=== PATIENT | female | born 1965 | race Caucasian/White ===

== ENCOUNTER 2023-11-15 16:41 | Emergency (ER) | payer MEDICARE, OTHER, SELFPAY ==
[2023-11-15 16:50] VITALS: BP 117/83; PULSE 71; RESP 18; TEMP 36.3; O2SAT 97
--- NOTE | 2023-11-15 17:06 | CT_ITS ---
Patient: HAJA MIMS Facility:?[facility] Patient ID:?[id number] Site Patient ID:?[id number]. Site :?[id number] Study:?CT-Abdomen/Pelvis 74CC ISOVUE 370-11/15/2023 6:05:58 PM Ordering Physician:?DR. ZAVALA Final Report: INDICATION: Ostomy with decreased output and nausea. TECHNIQUE: CT abdomen and pelvis acquired with 74 cc Omnipaque 350 IV contrast. COMPARISON: January 09, 2018. FINDINGS: Lower chest: Bibasilar atelectasis. Liver: Stable small hemangioma in the liver dome. Gallbladder and bile ducts: Unremarkable. No stones or inflammation. No biliary dilatation. Pancreas: Unremarkable. No mass or inflammation. Spleen: Unremarkable. Normal in size. No masses. Adrenal glands: Unremarkable. No nodules. Kidneys: Unremarkable. No suspicious masses, stones, or hydronephrosis. GI tract: Left ventral colostomy is present. Large parastomal hernia contains stool filled distended colon. There is also a large right ventral hernia containing stool filled distended colon. Small bowel is decompressed. Vasculature: Abdominal aorta is normal in caliber. Mesenteric arteries are patent. Lymph nodes: No lymphadenopathy. Peritoneum/Abdominal Wall: Small amount of free air in the left upper quadrant is presumably postoperative in nature. No fluid collections. Pelvis: Unremarkable. Bones: Unremarkable for age. IMPRESSION: 1. Left ventral colostomy is present. There is a constipation pattern in the colon. 2. Large left parastomal hernia and separate right ventral hernia contain segments of non incarcerated colon. 3. Left upper quadrant free air is presumably postoperative in nature. Please note that all CT scans at this facility use dose modulation, iterative reconstruction, and/or weight-based dosing when appropriate to reduce radiation dose to as low as reasonably achievable. Dictated by Jt Lee MD @ 11/15/2023 6:27:34 PM ----- ADDENDUM ----- FINDINGS: Results were discussed with Dr. Byrnes. The patient has not had recent surgery. Therefore, the free air is abnormal. Upon additional review the images, there is likely pneumatosis in the distal colon near the ostomy site. This is highly suspicious for acute ischemia/necrosis. Dictated by Jt Lee MD @ Nov 15 2023 6:54PM Signed by:?Jt Lee MD @11/15/2023 6:27:34 PM (Electronic Signature)
--- NOTE | 2023-11-15 17:14 | ED.GENADULT ---
HPI - General Adult General Date Seen: 11/15/23 Chief complaint: Abdominal Pain Stated complaint: abdominal pain, nausea, constipated Time Seen by Provider: 11/15/23 16:55 Source: patient, RN notes reviewed and old records reviewed Mode of arrival: ambulatory Limitations: no limitations History of Present Illness HPI narrative: Patient is a 58-year-old who is here with a few different concerns. One she says that she feels like her ostomy is not functioning quite right. She presents on Friday, says Friday morning she woke up with a lot of painful gas which is not unusual for her but she took simethicone it did not improve. Since then, she has had problems with her ostomy bulging out a bit, some leaking around the bag, and decreased output. She has also noted a little bit of rectal bleeding which she says is not unusual for her. Her ostomy was done 6 years ago she says for perforated bowel. She says that she is able to get it taken down but she has to quit smoking which she has not been able to do yet. She notes nausea and dry heaves, she says she has also had increased fatigue, increased headaches over the past week. No fevers. Related Data Home Medications Medication Instructions Recorded Confirmed alendronate 70 mg tablet 70 mg PO 11/15/23 atorvastatin 40 mg tablet 40 mg PO DAILY 11/15/23 11/15/23 bupropion HCl 300 mg 24 hr tablet, 300 mg PO DAILY 11/15/23 11/15/23 extended release buspirone 10 mg tablet 10 mg PO 3XD 11/15/23 11/15/23 carvedilol 12.5 mg tablet 12.5 mg PO BID 11/15/23 11/15/23 cetirizine 10 mg tablet 10 mg PO DAILY 11/15/23 11/15/23 cholecalciferol (vitamin D3) 25 25 mcg PO DAILY 11/15/23 11/15/23 mcg (1,000 unit) capsule dextroamphetamine-amphetamine 30 1 tab PO BID 11/15/23 11/15/23 mg tablet famotidine 20 mg tablet 20 mg PO BID 11/15/23 11/15/23 furosemide 20 mg tablet 20 mg PO DAILY 11/15/23 11/15/23 gabapentin 600 mg tablet PO 11/15/23 hydrocodone 10 mg-acetaminophen 1 tab PO 3XD PRN 11/15/23 11/15/23 325 mg tablet losartan 100 mg tablet 100 mg PO DAILY 11/15/23 11/15/23 lurasidone 20 mg tablet 20 mg PO DAILY 11/15/23 11/15/23 propranolol 60 mg capsule,24 60 mg PO DAILY 11/15/23 11/15/23 hr,extended release spironolactone 25 mg tablet 25 mg PO DAILY 11/15/23 11/15/23 trazodone 150 mg tablet 150 mg PO QPM 11/15/23 11/15/23 vortioxetine 20 mg tablet 20 mg PO DAILY 11/15/23 11/15/23 (Trintellix) Allergies Allergy/AdvReac Type Severity Reaction Status Date / Time morphine Allergy Verified 11/15/23 18:06 hctz AdvReac Uncoded 11/15/23 18:06 Review of Systems Status of ROS: Reports: 10 or more systems reviewed and unremarkable except as noted in History and below Exam Narrative: Exam Narrative: Vital signs as noted above. In general, an alert, nontoxic woman. Breathing easily. Looks comfortable. Head: Normocephalic, atraumatic. Eyes: Pupils are equal reactive. Extraocular movements are full. Conjunctivae are normal. ENT: Mucous membranes are moist. Delete Neck: Supple without lymphadenopathy. Heart: Regular rate and rhythm. No murmur or rub. Lungs: Clear bilaterally. No increased work of breathing, crackles or wheezes. Abdomen: Ostomy in the left abdomen. The ostomy itself looks normal right now. She does have erythema surrounding laterally and inferiorly, and the either abdominal wall or bowel contents are extremely firm to palpation inferior to the ostomy. There is erythema overlying this area, but she does not note significant tenderness. Area feels slightly warm. Extremities: Well perfused. No edema. No calf tenderness. Pulses intact. Neurologic: Patient is alert and oriented to person and place. She has little bit of a stutter. Face is symmetric. Moves all extremities equally. Affect: Anxious. Skin: Warm and dry. Well perfused. Const: Vital Signs, click to edit/add: Vital Signs - 24 hr 11/15/23 16:50 Temperature 97.3 F L Pulse Rate [Right Pulse Oximeter] 71 Respiratory Rate 18 Blood Pressure [Ri ght Upper Arm] 117/83 Pulse Oximetry 97 Oxygen Delivery Me thod Room Air Documenting provider has reviewed patient's vital signs: yes Course Course ED Course: Patient presents with some general and GI symptoms over the past few days. She has not been vomiting, continues to eat and drink and sounds like she is passing gas, but she most certainly has an abnormal abdominal exam. I would worry more about incarcerated hernia but she does not seem to have tenderness. Abdominal exam is really fairly benign I do think CT scan is warranted however. Will place an IV, give some Zofran, check labs, CT scan with contrast of the abdomen and pelvis ordered. Patient had labs notable for a normal white blood cell count of 10.6, left shift with 78% neutrophils. Hemoglobin is 12.2, normal platelets. Her CRP was markedly elevated at 38, lactate was normal. LFTs, metabolic panel fairly unremarkable, sodium 134, potassium 3.5. Creatinine is normal. Lipase 36. She went on to have CT scan of the abdomen. Initial radiology read was of constipation pattern, a large left peristomal hernia, separate right ventral hernia, non incarcerated colon and free air in the left upper quadrant which they called likely postoperative in nature. However, patient has not had any surgeries in the recent past. I discussed all this with Dr. Byrnes, who reviewed the images and reviewed the case with Radiology as well. They then provided an addendum as follows:FINDINGS: Lower chest: Bibasilar atelectasis. Liver: Stable small hemangioma in the liver dome. Gallbladder and bile ducts: Unremarkable. No stones or inflammation. No biliary dilatation. Pancreas: Unremarkable. No mass or inflammation. Spleen: Unremarkable. Normal in size. No masses. Adrenal glands: Unremarkable. No nodules. Kidneys: Unremarkable. No suspicious masses, stones, or hydronephrosis. GI tract: Left ventral colostomy is present. Large parastomal hernia contains stool filled distended colon. There is also a large right ventral hernia containing stool filled distended colon. Small bowel is decompressed. Vasculature: Abdominal aorta is normal in caliber. Mesenteric arteries are patent. Lymph nodes: No lymphadenopathy. Peritoneum/Abdominal Wall: Small amount of free air in the left upper quadrant is presumably postoperative in nature. No fluid collections. Pelvis: Unremarkable. Bones: Unremarkable for age. IMPRESSION: 1. Left ventral colostomy is present. There is a constipation pattern in the colon. 2. Large left parastomal hernia and separate right ventral hernia contain segments of non incarcerated colon. 3. Left upper quadrant free air is presumably postoperative in nature. Please note that all CT scans at this facility use dose modulation, iterative reconstruction, and/or weight-based dosing when appropriate to reduce radiation dose to as low as reasonably achievable. Dictated by Jt Lee MD @ 11/15/2023 6:27:34 PM ----- ADDENDUM ----- FINDINGS: Results were discussed with Dr. Byrnes. The patient has not had recent surgery. Therefore, the free air is abnormal. Upon additional review the images, there is likely pneumatosis in the distal colon near the ostomy site. This is highly suspicious for acute ischemia/necrosis. I have discussed all this with the patient. She remains hemodynamically stable and without significant complaints. She does not have a surgical abdomen at this time. Dr. Byrnes did recommend transfer to [facility] eyes she feels this will be a significantly complex case and the patient may need ICU care postoperatively. There is 2-4 hour wait for bed assignment at [facility]. If patient declines clinically in that time frame, we will discuss with Dr. Byrnes. Patient received Zosyn 3.375 g IV. Vital Signs Vital signs: Initial Vital Signs Temperature 97.3 F L 11/15/23 16:50 Temperature Source Temporal Artery Scan 11/15/23 16:50 Pulse Rate 71 11/15/23 16:50 Respiratory Rate 18 11/15/23 16:50 Blood Pressure 117/83 11/15/23 16:50 Blood Pressure Mean 94 11/15/23 16:50 Blood Pressure Position Sitting 11/15/23 16:50 Pulse Oximetry 97 11/15/23 16:50 Oxygen Delivery Method Room Air 11/15/23 16:50 Vital Signs Temperature 97.3 F L 11/15/23 16:50 Pulse Rate 71 11/15/23 16:50 Respiratory Rate 18 11/15/23 16:50 Blood Pressure 117/83 11/15/23 16:50 Pulse Oximetry 97 11/15/23 16:50 Oxygen Delivery Method Room Air 11/15/23 16:50 Temperature 97.3 F L 11/15/23 16:50 Pulse Rate 71 11/15/23 16:50 Respiratory Rate 18 11/15/23 16:50 Blood Pressure 117/83 11/15/23 16:50 Pulse Oximetry 97 11/15/23 16:50 Oxygen Delivery Method Room Air 11/15/23 16:50 Medications Administered Medications: Discontinued Medications Generic Name Dose Route Start Last Admin Trade Name Erica PRN Reason Stop Dose Admin Sodium Chloride 1,000 mls @ 1,000 mls/hr 11/15/23 17:15 11/15/23 18:25 0.9 % Sodium Chloride 1000 Ml IV 11/15/23 18:14 Infused .Q1H JAYA Infusion Lactated Ringer's 1,000 mls @ 75 mls/hr 11/15/23 19:55 11/15/23 20:05 Lactated Ringers 1000 Ml IV 75 mls/hr .[id number] JAYA Administration Ketorolac Tromethamine 15 mg 11/15/23 17:06 11/15/23 17:26 Ketorolac 15 Mg/Ml Inj IVP 11/15/23 17:07 15 mg ONCE ONE Administration Medical Decision Making Lab Data Labs: Lab Results 11/15/23 Range/Units 17:18 WBC 10.06 (4.50-11.00) K/uL RBC 3.76 L (4.00-5.20) m/uL Hgb 12.2 (12.0-16.0) gm/dL Hct 36.5 (33.0-51.0) % MCV 97 (80-100) fL MCH 32 (26-34) pg MCHC 33 (32-36) gm/dL RDW Coeff of Christopher 12.3 (11.5-15.5) % Plt Count 208 (140-440) K/uL Neut % (Auto) 77.8 H (42.0-72.0) % Lymph % (Auto) 11.8 L (20-44) % [place] % (Auto) 8.0 (0.0-11.0) % Eos % (Auto) 2.1 (0.0-7.0) % Baso % (Auto) 0.1 (0.0-3.0) % Neut # (Auto) 7.80 H (1.7-7.0) K/uL Lymph # (Auto) 1.20 (0.90-2.90) K/uL [place] # (Auto) 0.80 (0.00-0.90) K/UL Eos # (Auto) 0.21 (0.00-0.50) K/uL Baso # (Auto) 0.01 (0.00-0.30) K/uL Abs Immat Gran (auto) 0.02 (0.00-0.30) K/uL Imm/Tot Granulo (auto) 0.2 % Sodium 134 L (135-149) mmol/L Potassium 3.5 L (3.6-5.1) mmol/L Chloride 101 (96-114) mmol/L Carbon Dioxide 26 (20-32) mmol/L Anion Gap 7 (7-15) mEq/L BUN 17 (7-30) mg/dL Creatinine 0.6 (0.5-1.5) mg/dL Estimated GFR 103 ml/min Glucose 95 (60-115) mg/dL Lactate 0.6 (0.5-1.9) mmol/L Calcium 10.0 (8.4-10.6) mg/dL Magnesium 2.1 (1.5-2.6) mg/dL Total Bilirubin 0.5 (0.1-1.5) mg/dL Direct Bilirubin 0.2 (0.0-0.5) mg/dL AST 25 (12-35) U/L ALT 20 (4-35) U/L Alkaline Phosphatase 147 (40-150) U/L C-Reactive Protein 37.7 H (0.5-1.0) mg/dL Total Protein 7.6 (6.0-8.3) g/dL Albumin 3.9 (3.3-5.0) g/dL Lipase 36 (23-300) U/L Discharge Plan Discharge Clinical Impression: Ischemia, bowel Patient Disposition: [facility] Condition: Stable Prescriptions: No Action atorvastatin 40 mg tablet 40 mg PO DAILY gabapentin 600 mg tablet PO carvedilol 12.5 mg tablet 12.5 mg PO BID cetirizine 10 mg tablet 10 mg PO DAILY alendronate 70 mg tablet 70 mg PO propranolol 60 mg capsule,extended release 24 hr 60 mg PO DAILY hydrocodone-acetaminophen 10-325 mg tablet 1 tab PO 3XD PRN spironolactone 25 mg tablet 25 mg PO DAILY dextroamphetamine-amphetamine 30 mg tablet 1 tab PO BID famotidine 20 mg tablet 20 mg PO BID trazodone 150 mg tablet 150 mg PO QPM buspirone 10 mg tablet 10 mg PO 3XD furosemide 20 mg tablet 20 mg PO DAILY losartan 100 mg tablet 100 mg PO DAILY cholecalciferol (vitamin D3) 25 mcg (1,000 unit) capsule 25 mcg PO DAILY bupropion HCl 300 mg tablet extended release 24 hr 300 mg PO DAILY lurasidone 20 mg tablet 20 mg PO DAILY Trintellix 20 mg tablet 20 mg PO DAILY Discharge Comment: discharge to [facility].
--- OUTSIDE RECORDS SUMMARY | 2023-11-15 17:18 | XMS_ITS | Clinical Summary ---
Author Name Unknown Organization [facility] Address [address] [place] [address] Care Team Providers Care Metal Burnisher Name Role Phone Beth Nice Primary Care Provider [phone] Source Comments You are receiving this document as you are listed as the primary care provider,follow-up provider, or the patient has been referred to you for consultation.This is in compliance with the Medicare and[facility] EHR Incentive Program,which states Providers who transition their patient to another setting of careor provider of care or refers their patient to another provider of care shouldprovide summary care record for each transition of care or referral. [facility] Allergies Active Allergy Reactions Criticality Noted Date Comments Morphine Itching 01/23/2018 Medications Medication Sig Dispensed Refills Start Date End Date Status acetaminophen (TYLENOL) 500 MG tablet Take 500 mg by mouth every 4 hours as needed. 04/21/2017 Active amLODIPine (NORVASC) 5 MG tablet Take 10 mg by mouth daily. 06/03/2017 Active amphetamine-dextroam phetamine (ADDERALL) 30 MG tablet Take 30 mg by mouth two times a day. 10/19/2015 Active botulinum toxin type A (BOTOX) 100 units injection Inject 100 Units intramuscularly. 11/23/2015 Active caffeine 200 MG Take 200 mg by mouth every 3 hours as needed. 09/15/2017 Active carisoprodol (SOMA) 350 MG tablet Take 350 mg by mouth daily at bedtime. Active cholecalciferol (VITAMIN D-[address]) 1000 units tablet Take 1,000 Units by mouth daily. 11/04/2017 Active cycloSPORINE (RESTASIS) 0.05 % eye drop emulsion Place 1 Drop into eye(s) every 12 hours. 09/15/2017 Active Dexlansoprazole 30 MG Take 30 mg by mouth two times a day. 12/26/2017 Active amphetamine-dextroam phetamine (ADDERALL) 20 MG tablet Take 20 mg by mouth daily. 01/09/2017 Active diphenhydrAMINE (BENADRYL) 25 MG capsule Take 25 mg by mouth at bedtime as needed. Active docusate sodium (COLACE) 100 MG capsule Take 100 mg by mouth two times a day. 01/13/2018 Active FERROUS SULFATE OR Take 325 mg by mouth daily. 12/03/2017 Active gabapentin (NEURONTIN) 300 MG capsule Take 3 Caps by mouth three times a day. 05/27/2012 Active LORazepam (ATIVAN) 0.5 MG tablet Take 0.5 mg by mouth every 4 hours as needed. Active losartan (COZAAR) 25 MG tablet Take 25 mg by mouth daily. 02/05/2018 Active lurasidone (LATUDA) 20 MG tablet Take 20 mg by mouth daily. 12/04/2017 Active melatonin 3 MG tablet Take 24 mg by mouth daily at bedtime. Active magnesium hydroxide (MILK OF MAGNESIA) 400 MG/5ML suspension Take 30 mL by mouth daily as needed. 01/14/2018 Active multivitamin (THERAGRAN) tablet Take 1 Tab by mouth daily. 10/10/2017 Active ondansetron (ZOFRAN-ODT) [address] 8 mg under tongue every 8 hours as needed. 01/14/2018 Active Calcium Carb-Cholecalciferol (OYSCO 500 + D) 500-200 MG-UNIT TABS Take 1 Tab by mouth three times a day. 06/10/2017 Active polyethylene glycol 3350 (GLYCOLAX) powder Take 17 g by mouth daily as needed. 12/26/2017 Active propranolol (INDERAL) 20 MG tablet Take 20 mg by mouth two times a day. 09/20/2014 Active ORAL RELIEF FOR DRY MOUTH (ORALBALANCE) gel by Transmucosal route. Biotene gel 01/02/2017 Active traZODone (DESYREL) 150 MG tablet Take 150 mg by mouth daily at bedtime. Active vortioxetine (TRINTELLIX) 20 MG tablet Take 20 mg by mouth daily. 10/10/2017 Active AMOXICILLIN-POT CLAVULANATE OR Take by mouth two times a day. Active tamsulosin (FLOMAX) 0.4 MG CAPS capsuleIndications:D ifficulty voiding Take 1 Capsule by mouth daily. 90 Capsule 3 04/15/2018 Active Social History Tobacco Use Types Packs/Day Years Used Date Smoking Tobacco: Every Day Smokeless Tobacco: Never Sex and Gender Information Value Date Recorded Sex Assigned at Not on file Gender Identity Not on file Sexual Orientation Not on file Last Filed Vital Signs Vital Sign Reading Time Taken Comments Blood Pressure 128/90 02/20/2018 11:10 AM CDT Pulse 86 02/20/2018 11:10 AM CDT Temperature - - Respiratory Rate 16 02/20/2018 11:10 AM CDT Oxygen Saturation - - Inhaled Oxygen Concentration - - Weight - - Height - - Body Mass Index - - Plan of Treatment Health Maintenance Due Date Last Done Comments Cervical Cancer Screening Due 1965 Colon Cancer Screening Plan Due 1965 Hep C Screening (Preventive Services) 1965 Medicare Annual Wellness Visit 1965 Mammogram 1965 HIV Screening (Preventive Services) 1979 Cholesterol 2008 COVID-19 Vaccine ( season) 2023 01/01/2021 Influenza (#1) 2023 04/13/2020, 04/11, 04/23/2018, Additional history exists DTaP/Tdap/Td (2 - Tdap) 04/29/2024 04/29/2014, 01/18 Pneumococcal Aged Out 06/16/2011 No longer eligi ble based on patient's age to complete this topic HepA Aged Out 05/24/2015, 04/29/2014 No lo nger eligible based on patient's age to complete this topic Zoster/Shingles Completed 04/26/2019, 10/12/2018 HepB Aged Out No longer eligi ble based on patient's age to complete this topic Hib Aged Out No longer eligi ble based on patient's age to complete this topic IPV (Polio) Aged Out No longer eligi ble based on patient's age to complete this topic MCV4 Aged Out No longer eligi ble based on patient's age to complete this topic Care Teams Metal Burnisher Relationship Specialty [place] [id number] [place] [address] PCP - General Family Practice 02/20/18
--- OUTSIDE RECORDS SUMMARY | 2023-11-15 17:18 | XMS_ITS | Clinical Summary ---
Author Name Unknown Organization [facility] Address [place], [place] [address] Care Team Providers Care Manager Resort Name Role Phone Vivien Abdullahi MD Unavailable Unavailable Jcarlos Velazquez MD Unavailable Unavailable Beth Nice DO Primary Care Provider Allergies Active Allergy Reactions Criticality Noted Date Comments Hydrochlorothiazide Headache 12/03/2018 Morphine Itching Unknown 01/23/2018 Amlodipine Edema 12/03/2018 Tramadol Nausea Only,Headache 01/07/2019 Medications Medication Sig Dispensed Refills Start Date End Date Status Amphetamine-Dextroa mphetamine (ADDERALL) 30 mg tablet Take 1 tablet by mouth 2 times daily with meals. 0 10/19/19 16 Active multivitamin (MVI) tablet Take 1 tablet by mouth once daily. 0 10/11/19 18 Active vortioxetine (TRINTELLIX) 20 mg tabIndications:Carmen r depressive disorder, recurrent episode with anxious distress (HC) Take 1 tablet by mouth once daily. 0 10/11/19 18 Active lurasidone (LATUDA) 20 mg tabletIndications:S chizoaffective disorder, depressive type (HC) Take 1 tablet by mouth with dinner. 30 tablet 12/05/19 18 Active melatonin 3 mg tablet Take 24 mg by mouth at bedtime. Active traZODone (DESYREL) 150 mg tablet Take 150 mg by mouth at bedtime. Active saliva stimulant comb. no.7 gelIndications:Dry mouth Apply to the lining of the mouth. Biotene gel 60 g 4 02/24/20 18 Active gabapentin (NEURONTIN) 600 mg tablet Take 2 tablets by mouth 3 times daily. 0 01/01/20 19 Active Ostomy Supplies miscIndications:His tory of creation of ostomy (HC) As directed. Must be Brava elastic barrier strips 90 Each 3 02/27/20 19 Active caffeine 200 mg tablet Take by mouth every 3 hours if needed. 0 09/06/19 20 Active CaneIndications:Chr onic bilateral low back pain without sciatica,Balance problem,Closed nondisplaced subtrochanteric fracture of left femur, sequela Narrow Base Quad Cane for home use. Duration: lifetime 1 Device 09/13/19 20 Active acetaminophen (TylenoL) 325 mg tablet Take 975 mg by mouth 3 times daily if needed. Max acetaminophen dose: 4000mg in 24 hrs. Active glucosamine sulfate (Glucosamine) 500 mg tab Take 500 mg by mouth 2 times daily. Active diphenhydrAMINE (BENADRYL) 25 mg capsule Take 1 Capsule (25 mg) by mouth every 4 hours. 0 12/15/19 21 Active HYDROcodone-acetami nophen (NORCO) 5-325 mg per tablet Take 1 Tablet by mouth every 4 hours if needed for Pain. Max acetaminophen dose: 4000 mg in 24 hrs. 0 07/11/20 21 Active ibuprofen (ADVIL; MOTRIN) 200 mg tablet Take 1 Tablet (200 mg) by mouth every 6 hours. 0 08/20/19 22 Active wlzwuhp-fyvn-ppejn- oreg-capryl 100 mg-150 mg- 50 mg-150 mg cap Take by mouth. 0 08/20/19 22 Active medication order composerIndications :Dry mouth ACT lozenges Use as needed for dry mouth 1 Package 11 08/20/19 22 Active buPROPion (WELLBUTRIN XL) 300 mg Extended-Release tablet Take 300 mg by mouth once daily. 07/15/20 22 Active ciclopirox solution (Penlac) 8 % solutionIndications :Onychomycosis Apply 1 layer nightly for 7 days, then remove with alcohol. Max treatment of 48weeks. 6.6 mL 8 08/22/19 23 Active omega-3 fatty acids (Fish Oil Concentrate) cap Take 2 Capsules (2,000 mg) by mouth once daily. 60 Capsule 08/26/19 23 Active propranolol ER (INDERAL LA) 60 mg Cs24 Sustained-Release capsuleIndications: Essential hypertension Take 1 Capsule (60 mg) by mouth once daily. 90 Capsule 3 03/10/20 23 Active busPIRone (BUSPAR) 10 mg tablet Take 1 Tablet (10 mg) by mouth three times daily. 0 04/08/20 23 Active atorvastatin (LIPITOR) 40 mg tabletIndications:M ixed dyslipidemia TAKE 1 TABLET BY MOUTH EVERY NIGHT AT BEDTIME 90 Tablet 08/28/19 24 Active nicotine 21 mg/24 hr (NICODERM; HABITROL) 21 mg/24 hr patchIndications:To bacco use disorder Apply 1 Patch on dry, clean, hairless skin once daily. 28 Patch 1 09/01/19 24 Active nicotine 14 mg/24 hr (NICODERM; HABITROL) 14 mg/24 hr patchIndications:To bacco use disorder Apply 1 Patch on dry, clean, hairless skin once daily. 28 Patch 1 09/01/19 24 Active nicotine 4 mg lozengeIndications: Tobacco use disorder Max 20 doses/day.PLACE 1 LOZENGE IN MOUTH, BETWEEN CHEEK AND GUM, EVERY HOUR WHILE 81 Each 2 09/01/19 24 Active nicotine 7 mg/24 hr (NICODERM; HABITROL) 7 mg/24 hr patchIndications:To bacco use disorder Apply 1 Patch on dry, clean, hairless skin once daily. 28 Patch 1 09/01/19 24 Active calcium with vitamin D3 (calcium 500 mg-vitamin d 200 units) tabletIndications:P ostmenopausal Take 1 Tablet by mouth two times daily with meals. 180 Tablet 3 09/01/19 24 Active cholecalciferol (VITAMIN D3) 1,000 unit capsuleIndications: Vitamin D deficiency Take 1 Capsule (1,000 units) by mouth once daily. 90 Capsule 3 09/01/19 24 Active cetirizine (ZYRTEC) 10 mg tabletIndications:S easonal allergic rhinitis due to pollen Take 1 Tablet (10 mg) by mouth once daily. 90 Tablet 3 09/01/19 24 Active polyethylene glycoL (MIRALAX) 17 gram/scoop powderIndications:C hronic constipation Mix 1 scoop (17 g) in liquid then take by mouth once daily if needed for Constipation. 850 g 3 09/01/19 24 Active albuterol HFA (Ventolin HFA) 90 mcg/actuation inhalerIndications: Tobacco use disorder Inhale 1 Puff by mouth 4 times daily if needed for Shortness of Breath 1st choice. 1 Each 1 09/01/19 24 Active furosemide (LASIX) 20 mg tabletIndications:E ssential hypertension TAKE 1 TABLET BY MOUTH EVERY MORNING 90 Tablet 3 09/04/19 24 Active docusate (COLACE) 100 mg capsuleIndications: Chronic constipation TAKE 1 CAPSULE BY MOUTH TWICE A DAY ( IN THE MORNING AND IN THE EVENING ) 180 Capsule 3 09/09/19 24 Active losartan (COZAAR) 100 mg tabletIndications:E ssential hypertension TAKE 1 TABLET BY MOUTH DAILY 90 Tablet 3 09/17/19 24 Active famotidine (PEPCID) 20 mg tabletIndications:C hronic GERD TAKE 1 TABLET BY MOUTH TWICE A DAY 180 Tablet 2 09/24/19 24 Active spironolactone (ALDACTONE) 25 mg tabletIndications:E ssential hypertension Take 1 Tablet (25 mg) by mouth every morning. 90 Tablet 3 09/24/19 24 Active alendronate (FOSAMAX) 70 mg tabletIndications:O steopenia of right hip Take 1 Tablet (70 mg) by mouth once a week in the morning. Take on empty stomach with full glass of water. Do not lie down for 1 hr. 12 Tablet 3 09/24/19 24 Active carvediloL (COREG) 12.5 mg tabletIndications:U ncontrolled hypertension TAKE 1 TABLET BY MOUTH TWICE A DAY WITH MEALS 180 Tablet 10/27/19 24 Active carvediloL (COREG) 12.5 mg tabletIndications:U ncontrolled hypertension Take 1 Tablet (12.5 mg) by mouth two times daily with meals. 60 Tablet 09/24/19 24 024 Discontinued Active Problems Problem Noted Date Diagnosed Date Osteopenia of right hip 09/24/2023 Overview: DEXA 09/19/23: T-scores AP: 0.1, LFN N/A, RFN -1.8. FRAX 27.8%, 3.1%. Recommend Fosamax and repeat in 2 years. Colostomy status 08/22/2022 Chronic obstructive pulmonar y disease, unspecified COPD type 08/20/2021 Nausea with vomiting 12/12/2020 Mixed dyslipidemia 08/15/2020 Closed nondisplaced subtroch anteric fracture of left femur with routine healing 06/09/2019 Chronic bilateral low back pain without sciatica 03/02/2019 It band syndrome, right 03/02/2019 Spinal stenosis of lumbar re gion without neurogenic claudication 03/02/2019 Lumbar facet arthropathy 03/02/2019 Prediabetes 06/03/2017 Cervical disc disease 05/28/2016 Overview: C6-7 with foramen narrowing, imaging per MRI, with neurology Thoracic disc herniation 05/28/2016 Overview: T8-9, per neurology Obesity (BMI 30-39.9) 05/28/2016 Pure hypercholesterolemia 05/24/2015 Overview: ASCVD 10 year risk 5.0%. 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 Resolved Problems Problem Noted Date Diagnosed Date Resolved Date Class 2 severe obesity due t o excess calories with serious comorbidity in adult, unspecified BMI 08/22/2022 09/01/2023 Elevated LFTs 08/16/2020 09/01/2023 Rectal bleeding 01/24/2018 12/12/2020 Tachycardia 01/24/2018 12/12/2020 Generalized weakness 01/24/2018 021 Perforated sigmoid colon 01/13/201811/2020 Stercoral ulcer of large intestine 01/09/2018 09/01/2023 Routine adult health maintenance 05/16/2014 12/12/2020 Overview: Colonoscopy 05/2014 normal repeat in 10 years Elevated transaminase level 12/03/2011 04/29/2014 Depressive disorder, not elsewhere classified 12/26/19 06 03/13/2007 Non morbid obesity 12/25/2005 6 Fever and other physiologic disturbances of temperature regulation 06/03/2005 04/29/2014 SORE THROAT 06/03/2005 12/07/2008 TREMOR 06/03/2005 Pelvic abscess in female 11/2020 Encounters Date Type Department Care Team Description 11/04/2023 Telephone [facility] [address] [place] [address] Beth Nice DO Form (PHYSICIAN ORDERS) 10/31/2023 Telephone [facility] [address] [place] [address] Beth Nice DO Follow Up (Bp meds and visits) 10/21/2023 Refill [facility] [address] [place] [address] Beth Nice DO Refill Request (Carvedilol) 10/21/2023 Telephone [facility] [address] [place] [address] Beth Nice DO Form (PHYSICIAN ORDER) 10/16/2023 Telephone [facility] [address] [place] [address] Beth Nice DO Form (Case Communication - BP readings) 10/03/2023 Telephone [facility] [address] [place] [address] Beth Nice DO Form 10/01/2023 Telephone [facility] [address] [place] [address] Beth Nice DO Form (PHYSICIAN ORDER) 09/30/2023 1:45 PM [employer] LAND CONSULTANT Office Visit [facility] [address] [place] [phone] Rachel Walker MD Derm Problem (Inside b/l cheeks white areas, dentist found them years ago. Occasionally bites them. Still has issues with dry mouth from meds.) 09/30/2023 Travel 09/26/2023 Telephone [facility] [address] [place] [address] Beth Nice, Form (WRITTEN ORDER) 09/25/2023 Telephone [place] [address] [place] [address] Beth Nice, Results 09/23/2023 Refill [place] [address] [place] [address] Beth Nice DO Refill Request (Famotidine, Spironolactone) 09/19/2023 11:00 AM CONTAM[employer] LAND CONSULTANT Ancillary Procedure [facility] [address] [place] [address] 09/19/2023 Travel 09/18/2023 Telephone [place] [address] [place] [address] Beth Nice DO Form (ORDER) 09/16/2023 Refill [place] [address] [place] [address] Beth Nice DO Refill Request (Losartan) 09/16/2023 Telephone [place] [address] [place] [address] Beth Nice DO Form 09/09/2023 Refill [place] [address] [place] [address] Beth Nice DO Refill Request (Docusate) 09/08/2023 Telephone [place] [address] [place] [address] Beth Nice DO Form (ORDER) 09/02/2023 Refill [place] [address] [address] Beth Nice DO Refill Request (Furosemide) 09/01/2023 2:30 PM CONTAMINATED LAND CONSULTANT Orders Only [address] [address] Lab, Farm Outside Order (ACP 07/22/2023) 09/01/2023 12:55 PM CONTAMINATED LAND CONSULTANT Office Visit [place] [address] [place] [address] Beth Nice DO Medicare ANNUAL (subsequent) Visit (Not fasting); Lab (Per [facility]) 09/01/2023 Travel 08/27/2023 Refill [place] [address] [place] [address] Beth Nice DO Refill Request (Spironolactone, Cetirizine, Atorvastatin) 08/19/2023 1:20 PM CONT[employer] LAND CONSULTANT Office Visit [place] [address] [place] [address] Joe Camejo MD Eye Problem (Right eye is tender by the under eye); Sinus Problem (Nasal drainage and sore throat am and pm. Also check check ears) 08/19/2023 Travel from Last 3 Months Immunizations Name Administration Dates Next Due AMB INFLUENZA, IIV4 (AGE=>6M OS) MDV (Flu Clinic Only) 05/23/2017 AMB Influenza, IIV3 (Age >=3 years)(Flu Clinic Only) 05/24/2013,05/28/2011,05/31/2010 COVID-19 vaccine (Moderna 100mcg/0.5mL) PF, MDV 01/29/2021,01/01/2021 COVID-19 vaccine (Moderna Gerald fredrick 50mcg/0.25mL) PF, MDV 08/20/2021 Hepatitis A (Adult) 05/24/2015,04/29/2014 Hepatitis B (Adult) 05/24/2015,04/29/2014,2006 Influenza A (H1N1), Inactiva dave (Age >=3 Years) 08/25/2009 Influenza, IIV3 (Age 6-35 mos) 05/28/2011 Influenza, IIV3 (Age >=3 years) 07/14/2012,06/12,07/19/2003 Influenza, IIV4 07/11/2021, 0,04/26/2019,2017,04/17/2016,04/27/2015,04/29/2014 Influenza, Live, Intranasal Laiv3 08/25/2009 Influenza,CCIIV4 PRESERV FREE 05/26/2022 Influenza,LAIV4 Live Intrana monik (Flumist) 08/25/2009 Pneumococcal Conj 20-valent (Prevnar 20) 08/22/2022 Pneumococcal Poly,23-Valent (Pneumovax) 06/16/2011 Td (Age >=7 Years) 01/19/2004 Tdap 04/29/2014 Tuberculin (PPD) 10/29/2006 Tuberculin Skin Test, Unspecified 05/15/2019, Zoster (Shingrix-RZV, recombinant) 04/26/2019, Family History Medical History Relation Name Comments Alcohol/Drug Father alcoholism Hypertension Father Psychiatric illness Father depressi on Cancer-breast Maternal Aunt Heart Disease Maternal Aunt Psychiatric illness Mother Nervous breakdown Genetic Other MA Heart attack ~MU epilepsy~Sister gestional diabetes~Father high BP Cancer-breast Sister Relation Name Status Comments Father Alive Maternal Aunt Alive Maternal Grandfather Maternal Grandmother Mother (Age 65) glioblasto ma Other Paternal Grandfather Paternal Grandmother Sister Alive Diagnosed at ag e 47 Social History Tobacco Use Types Packs/Day Years Used Date Smoking Tobacco: Every Day Cigarettes 1 47.3 Started: 1978 Smokeless Tobacco: Never Tobacco Cessation:Ready to Q uit: No; Counseling Given: No Alcohol Use Standard Drinks/Week Comments Yes 6 (1 standard drink = 0.6 oz pure alcohol) States last drink was 02/23/19, has stopped PHQ-2 Answer Date Recorded PHQ-2 TOTAL SCORE 4 09/01/2023 Social Connections Answer Date Recorded Frequency of Communication with Friends and Fami ly Not on file 08/23/2023 Financial Resource Strain Answer Date R ecorded Difficulty of Paying Living Expenses 3 08/22/2022 Difficulty of Paying Living Expenses Not on file 08/22/2022 Food Insecurity Answer Date Recorded Worried About Running Out of Food in the Last Ye ar 1 08/22/2022 Transportation Needs Answer Date Record ed Lack of Transportation (Medical) 1 08/22/2022 Housing Stability Answer Date Recorded Unable to Pay for Housing in the Last Year 1 08/22/2022 Sex and Gender Information Value Date Recorded Sex Assigned at Not on file Gender Identity Not on file Sexual Orientation Not on file Obstetrics History Para Term AB IAB SAB Ectopic Multiple Livin g Live Births 4 2 2 0 2 0 2 0 0 2 Date Outcome GA Total Labor Labor/2nd/3rd Weight Sex Delivery Anes PTL Joslyn A1 A5 Name Cl in SAB SAB Term Term Last Filed Vital Signs Vital Sign Reading Time Taken Comments Blood Pressure 144/94 09/16/2023 8:55 AM [employer]AND CONSULTANT Pulse 74 09/02/2023 12:00 PM [employer]AND CONSULTANT Temperature 36.4 ??C (97.5 ??F) 08/13/2023 2:52 PM CS T Respiratory Rate 16 03/10/2023 11:13 AM CDT Oxygen Saturation 98% 09/01/2023 1:31 PM [employer]AND CONSULTANT Inhaled Oxygen Concentration - - Weight 70.6 kg (155 lb 9.6 oz) 09/01/2023 1:31 P M [employer]AND CONSULTANT Height 160 cm (5' 2.99) 09/01/2023 1:31 PM CONTAMIN[employer] LAND CONSULTANT Body Mass Index 27.57 09/01/2023 1:31 PM [employer]AND CONSULTANT Plan of Treatment Health Maintenance Due Date Last Done Comments Low Dose CT (for lung CA) ag e 50-80 2013 COVID-19 vaccine series ( season) 2023 08/20/2021, 01/29/2021, 01/01/2021 Mammogram for age 45-75 10/31/2023 10/31/19 23, 09/24/2021, 05/14/2018, Additional history exists Influenza for age 50-64 04/11/2024 05/26/20, 07/11/2021, 04/13/2020, Additional history exists Tetanus booster 04/29/2024 04/29/2014, 01/19/2004 BMI (ht and wt on same day) for age 18+ 09/01/2024 09/01/2023, 03/10/2023, 08/22/2022, Additional history exists Depression screening for age 12+ 09/02/2024 09/02/2023, 09/01/2023, 09/01/2023, Additional history exists Pap test for age 21-65 08/14/2025 , 08/14/2020, 06/03/2017, Additional history exists Lipids for age 45-75 09/01/2028 09/01/2023, 08/22/2022, 08/20/2021, Additional history exists Colonoscopy through age 75 09/03/202809/03, 08/31/2018, 08/31/2018, Additional history exists Hepatitis C screening for ag e 18-79 Completed 12/01/2011 Tdap Completed 04/29/2014 Zoster (shingles) series for age 50+ Completed 04/26/2019, 10/12/2018 HIV for age 15-65 Completed 08/22/2022 Pneumococcal series for age 6-64 Completed 08/22/19, 06/16/2011 Goals Goal Patient Goal Type Associated Problems Recent Progress Patient-Stated? Author BLOOD PRESSURE - MAINTAINS BP less than 140/90 Blood Pressure No Keyla Gresham MD BLOOD PRESSURE-MAINTAINS BP LESS THAN 130/80 Blood Pressure No Karuna Alvarez MD Transportation - Increase reliability General Yes Jeaneth Husain, RN Note: Goal identified during: Initial Screening Status: In Progress Barriers to goal achievement: cost of repairs, unable to have reliable transportation to get/keep a job. Patient steps toward goal achievement: has medical rides through her insurance. She is not sure what to do about her car and all of the repairs it will need. Navigator steps to support goal achievement: will call patient with [employer] results and continue to offer support Proposed timeline for goal completion: will follow up with results and at 2 weeks. Notes: NA Date of follow up: will follow up 03/03 or 03/04 with resources found through [employer]. 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 (HC) CBC WITH AUTO DIFFERENTIAL Routine 09/01/2023 2:33 PM [employer]AM[employer] LAND CONSULTANT Attention deficit hyperactivity disorder, 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 (HC) COMP METABOLIC PANEL Routine 09/01/2023 2:33 PM [employer]AMIN[employer] LAND CONSULTANT Essential hypertension Mixed dyslipidemia HEMOGLOBIN A1C SCREENING Routine 09/01/2023 2:33 PM [employer]AMIN[employer] LAND CONSULTANT Prediabetes LIPID PANEL W REFLEX MEASURED LDL Routine 09/01/2023 2:33 PM [employer]AND CONSULTANT Mixed hyperlipidemia XR MAMMO HECTOR BILAT SCREEN Routine 10/30/2022 12:49 PM CDT Encounter for screening mammogram for malignant neoplasm of breast LC HIV-1/O/2, 4TH GENERATION Routine 08/22/2022 2:19 PM [employer]AND CONSULTANT Screening for HIV (human immunodeficiency virus) R DEVELOPER THIN PREP PAP SCREEN IMAGED Routine 08/14/2020 2:47 PM [employer]AM[employer] LAND CONSULTANT Screening for cervical cancer COLONOSCOPY SCREENING Routine 08/31/2018 12:00 PM [employer]AND CONSULTANT Preoperative evaluation to rule out surgical contraindication ACUTE HEPATITIS PANEL STAT 12/01/2011 8:00 PM CDT from Last 3 Months or Most Recently Relevant to Health Maintenance Results * XR DXA BONE DENSITY 2 SITES AXIAL (09/19/2023 11:25 AM CONTAMINATED LAND CONSULTANT) Anatomical Region Laterality Modality Spine, HIPS, HIPL, HIPR Computed Radiography 09/19/2023 11:2 5 AM CONTAMINATED LAND CONSULTANT Impressions 09/19/2023 12:53 PM CONTAMINATED LAND CONSULTANT Low bone density (OSTEOPENIA). T score meets the WHO criteria for low bone density (osteopenia) at one or more measured sites. The risk of osteoporotic fracture increases approximately two-fold for each standard deviation decrease in T-score. Narrative 09/19/2023 12:53 PM CONTAMINATED LAND CONSULTANT For Patients: As a result of the Cures Act, medical imaging exams and procedure reports are released immediately into your electronic medical record. You may view this report before your referring provider. If you have questions, please contact your health care provider. EXAM: XR DXA BONE DENSITY 2 SITES AXIAL LOCATION: [facility] DATE: 09/19/2023 INDICATION: I. Other (screening-at minimum one option in 2-5 must be selected) - z13.820. Osteoporosis screening. Asymptomatic menopausal state. DEMOGRAPHICS: Age- 58 years. Gender- Female. COMPARISON: No prior studies available on the current scanner. TECHNIQUE: Dual-energy x-ray absorptiometry (DXA) performed with routine technique. FINDINGS: DXA RESULTS -Lumbar Spine: L1-L4: BMD: 1.189 g/cm2. T-score: 0.1. Z-score: 1.0. -RIGHT Hip Total: BMD: 0.767 g/cm2. T-score: -1.9. Z-score: -1.2. -RIGHT Hip Femoral neck: BMD: 0.789 g/cm2. T-score: -1.8. Z-score: -0.7 WHO T-SCORE CRITERIA -Normal: T score at or above -1 SD -Osteopenia: T score between -1 and -2.5 SD -Osteoporosis: T score at or below -2.5 SD The World Health Organization (WHO) criteria is applicable to perimenopausal females, postmenopausal females, and men aged 50 years or older. INTERVAL CHANGE No comparison . FRACTURE RISK major osteoporotic fracture: 27.8% hip fracture: 3.1% Procedure Note Celso Mcginnis MD - 09/19/2023 For Patients: As a result of the s Act, medical imagingexams and procedure reports are released immediately into your electronicmedical record. You may view this report before your referring provider.If you have questions, please contact your health care provider. EXAM: XR DXA BONE DENSITY 2 SITES AXIAL LOCATION: [facility] DATE: 09/19/2023 INDICATION: I. Other (screening-at minimum one option in 2-5 must beselected) - z13.820. Osteoporosis screening. Asymptomatic menopausalstate. DEMOGRAPHICS: Age- 58 years. Gender- Female. COMPARISON: No prior studies available on the current scanner. TECHNIQUE: Dual-energy x-ray absorptiometry (DXA) performed with routinetechnique. FINDINGS: DXA RESULTS -Lumbar Spine: L1-L4: BMD: 1.189 g/cm2. T-score: 0.1. Z-score: 1.0. -RIGHT Hip Total: BMD: 0.767 g/cm2. T-score: -1.9. Z-score: -1.2. -RIGHT Hip Femoral neck: BMD: 0.789 g/cm2. T-score: -1.8. Z-score: -0.7 WHO T-SCORE CRITERIA -Normal: T score at or above -1 SD -Osteopenia: T score between -1 and -2.5 SD -Osteoporosis: T score at or below -2.5 SD The World Health Organization (WHO) criteria is applicable toperimenopausal females, postmenopausal females, and men aged 50 years orolder. INTERVAL CHANGE No comparison . FRACTURE RISK major osteoporotic fracture: 27.8% hip fracture: 3.1% IMPRESSION: Low bone density (OSTEOPENIA). T score meets the WHO criteria for low bonedensity (osteopenia) at one or more measured sites. The risk ofosteoporotic fracture increases approximately two-fold for each standarddeviation decrease in T-score. Beth Nice DO DEXA * CBC WITH AUTO DIFFERENTIAL (09/01/2023 2:33 PM CONTAMINATED LAND CONSULTANT) [facility] WHITE BLOOD COUNT 6.0 4.5 - 11.0 thou/cu mm 09/01/2023 2:45 PM CONTAMINATED LAND CONSULTANT [facility] RED BLOOD COUNT 4.31 4.00 - 5.20 mil/cu mm 09/01/2023 2:45 PM CONTAMIN[employer] LAND CONSULTANT [facility] HEMOGLOBIN 13.8 12.0 - 16.0 g/dL 09/01/2023 2:45 PM [facility] HEMATOCRIT 42.2 33.0 - 51.0 % 09/01/2023 2:45 PM [facility] MCV 98 80 - 100 fL 09/01/2023 2:45 PM [facility] MCH 32.0 26.0 - 34.0 pg 09/01/2023 2:45 PM [facility] MCHC 32.7 32.0 - 36.0 g/dL 09/01/2023 2:45 PM [facility] RDW 12.6 11.5 - 15.5 % 09/01/2023 2:45 PM [facility] PLATELET COUNT 198 140 - 440 thou/cu mm 09/01/2023 2:45 PM [facility] MPV 9.6 6.5 - 11.0 fL 09/01/2023 2:45 PM [facility] % NEUT 42.5 % 09/01/2023 2:45 PM [facility] % LYMPH 46.4 % 09/01/2023 2:45 PM [facility] % MONO 7.8 % 09/01/2023 2:45 PM [facility] % EOS 2.8 % 09/01/2023 2:45 PM [facility] % BASO 0.5 % 09/01/2023 2:45 PM [facility] ABSOLUTE NEUTROPHILS 2.5 1.7 - 7.0 thou/cu mm 09/01/2023 2:45 PM [facility] ABSOLUTE LYMPHOCYTES 2.8 0.9 - 2.9 thou/cu mm 09/01/2023 2:45 PM [facility] ABSOLUTE MONOCYTES 0.5 <0.9 thou/cu mm 09/01/2023 2:45 PM [facility] ABSOLUTE EOSINOPHILS 0.2 <0.5 thou/cu mm 09/01/2023 2:45 PM [facility] ABSOLUTE BASOPHILS 0.0 <0.3 thou/cu mm 09/01/2023 2:45 PM [facility] Blood BLOOD SPECIMEN / Unknown Venipuncture / Unknown 09/01/2023 2:33 PM [employer] 09/01/2023 2:33 PM [employer] Narrative [facility] - 09/01/2023 2:45 PM [employer]AND CONS[employer] The lab will provide the testing results for BMP, CBC, A1CS, HFP, to the outside provider, Dhaval Landry MD at fax number [phone] Beth Nice DO HEMATOLOGY Performing Organization Address City/[facility]/ZIP Co de Phone Number [facility] [address] [place] [address], * HEMOGLOBIN A1C SCREENING (09/01/2023 2:33 PM [employer] CONS[employer]) HEMOGLOBIN A1C SCREENING 5.1 <=6.4 % 09/02/2023 7:52 AM [employer]AND CONSULT[employer] [facility] Blood BLOOD SPECIMEN / Unknown Venipuncture / Unknown 09/01/2023 2:33 PM [employer] 09/01/2023 2:33 PM [employer] Narrative [facility] - 09/02/2023 7:52 AM [employer]AND CONS[employer] ? (<5.7%) ?Normal ? (5.7% to 6.4%) ? Indicates prediabetes ? (>=6.5%) ? Confirms diabetes Falsely low levels may be seen with: Recent Transfusion, Recent Significant Blood Loss, Hemolytic Diseases, or Falsely elevated levels may be seen with: Untreated Anemias, Splenectomy Beth Nice DO CHEMISTRY [facility] [address] [place] [address], * LIPID PANEL W REFLEX MEASURED LDL (09/01/2023 2:33 PM [employer]AND CONSULTANT) CHOLESTEROL,TOTAL 175 100 - 199 mg/dL 09/01/2023 10:46 PM [employer]AND CONSULTANT [facility] Comment: Cholesterol, Total Reference Ranges Desirable <200 mg/dL Borderline 200-239 mg/dL High >=240 mg/dL TRIGLYCERIDES 86 <150 mg/dL 09/01/2023 10:46 PM [employer]AND CONSULT[employer] [facility] HDL CHOLESTEROL 85 >40 mg/dL 10:46 PM [employer]AND CONSULTANT [facility] NON-HDL CHOLESTEROL 90 <145 mg/dl 09/01/2023 10:46 PM [employer]AND CONSULT[employer] [facility] CHOL/HDL RATIO 2.06 <4.50 09/01/2023 10:46 PM [employer] CONSULT[employer] [facility] LDL CHOLESTEROL 73 <=130 mg/dL 09/01/2023 10:46 PM [facility] VLDL CHOLESTEROL 17 <=30 mg/dL 09/01/2023 10:46 PM [facility] PROVIDER ORDERED STATUS FASTING 09/01/2023 10:46 PM [facility] Blood BLOOD SPECIMEN / Unknown Venipuncture / Unknown 09/01/2023 2:33 PM [employer] 09/01/2023 2:33 PM [employer] Roseann Patel MD CHEMISTRY [facility] [address] [place] [address], * HEPATIC FUNCTION PANEL (09/01/2023 2:33 PM [employer]AND CONSULTANT) ALBUMIN 4.8 4.0 - 4.9 g/dL 09/01/2023 10:46 PM [facility] PROTEIN,TOTAL 7.1 6.0 - 8.0 g/dL 09/01/2023 10:46 PM [facility] BILIRUBIN,TOTAL 0.2 0.0 - 1.2 mg/dL 09/01/2023 10:46 PM [facility] BILIRUBIN,DIRECT <0.2 0.0 - 0.3 mg/dL 09/01/2023 10:46 PM [employer] CONS[employer] [facility] BILIRUBIN,INDIRE CT 09/01/2023 10:46 PM [facility] Comment:Unable to calculate, Direct Bili <0.2 ALK PHOSPHATASE 69 35 - 104 IU/L 09/01/2023 10:46 PM [facility] ALT (SGPT) 23 10 - 35 IU/L 09/01/2023 10:46 PM [facility] AST (SGOT) 24 10 - 35 IU/L 09/01/2023 10:46 PM [facility] Blood BLOOD SPECIMEN / Unknown Venipuncture / Unknown 09/01/2023 2:33 PM [employer] 09/01/2023 2:33 PM [employer] CONS[employer] Beth Nice DO CHEMISTRY [facility] [address] [place] [address], * (ABNORMAL) COMP METABOLIC PANEL (09/01/2023 2:33 PM [employer]AND CONSULTANT) SODIUM 142 136 - 145 mmol/L 09/01/2023 10:46 PM [facility] POTASSIUM 4.4 3.5 - 5.1 mmol/L 09/01/2023 10:46 PM [facility] CHLORIDE 103 98 - 107 mmol/L 09/01/2023 10:46 PM [facility] CO2,TOTAL 28 22 - 29 mmol/L 09/01/2023 10:46 PM [facility] ANION GAP 11 5 - 18 09/01/2023 10:46 PM [facility] GLUCOSE 84 70 - 99 mg/dL 09/01/2023 10:46 PM [facility] CALCIUM 10.6(H) 8.8 - 10.2 mg/dL 09/01/2023 10:46 PM [facility] BUN 15 8 - 23 mg/dL 09/01/2023 10:46 PM [facility] CREATININE 0.89 0.50 - 0.90 mg/dL 09/01/2023 10:46 PM [facility] BUN/CREAT RATIO 17 10 - 20 4 10:[address] [facility] eGFR 74(L) >90 mL/min/1.7 3m2 09/01/2023 10:46 PM [facility] Comment:As of 2021, eG FR is calculated by the CKD-EPI creatinine equation without race adjustment. ??eGFR can be influenced by muscle mass, exercise, and diet. ??The reported eGFR is an estimation only and is only applicable if the renal function is stable. ALBUMIN 4.8 4.0 - 4.9 g/dL 09/01/2023 10:46 PM [facility] PROTEIN,TOTAL 7.1 6.0 - 8.0 g/dL 09/01/2023 10:46 PM [facility] BILIRUBIN,TOTAL 0.2 0.0 - 1.2 mg/dL 09/01/2023 10:46 PM [facility] ALK PHOSPHATASE 69 35 - 104 IU/L 09/01/2023 10:46 PM [facility] ALT (SGPT) 23 10 - 35 IU/L 09/01/2023 10:46 PM [facility] AST (SGOT) 24 10 - 35 IU/L 09/01/2023 10:46 PM [facility] Blood BLOOD SPECIMEN / Unknown Venipuncture / Unknown 09/01/2023 2:33 PM [employer] 09/01/2023 2:33 PM [employer] CONS[employer] Beth Nice DO CHEMISTRY [facility] [address] [place] [address], * XR MAMMO HECTOR BILAT SCREEN (10/30/2022 12:49 PM CDT) Anatomical Region Laterality Modality BREASTS, Breast Left, Breast Right Bilateral Mammography Impressions 10/31/2022 9:54 AM CDT ??There is no radiographic evidence for malignancy. ??Recommend annual mammograms. MAMMOGRAM ASSESSMENT: ??ACR 1 Negative PATIENTS: You will also receive a letter with your examination results in an easy to read format. ??If you have questions about your results, please contact your referring provider. Narrative 10/31/2022 9:54 AM CDT For Patients: As a result of the Century Cures Act, medical imaging exams and procedure reports are released immediately into your electronic medical record. You may view this report before your referring provider. If you have questions, please contact your health care provider. XR MAMMO HECTOR BILAT SCREEN [[id number]] CLINICAL HISTORY: ??This is an asymptomatic 57 y.o. patient. INDICATION FOR EXAM: Mammogram Screening. TECHNIQUE: CC & MLO views were obtained. ??This study was evaluated with the assistance of Computer-Aided Detection. Breast Tomosynthesis was used in interpretation. COMPARISON FILM: Yes 09/24/21 ?? 05/14/18 ?? FINDINGS: ??The breasts are almost entirely fatty. There are no dominant masses, suspicious micro calcifications or areas of architectural distortion. Beth Espinosapatric DO MAMMO * LC HIV-1/O/2, 4TH GENERATION (08/22/2022 2:19 PM [employer]AND CONSULTANT) HIV Scr 4th Gen Non Reactive Non Reactive 08/24/2022 10:09 AM [facility] Comment: HIV Negative HIV-1/HIV-2 antibodies and HIV-1 p24 antigen were NOT detected. There is no laboratory evidence of HIV infection. Blood BLOOD SPECIMEN / Unknown Venipuncture / Unknown 08/22/2022 2:19 PM [employer]AND CONSULTANT 08/22/2022 2:19 PM [employer]AND CONSULTANT Narrative [facility] - 08/24/2022 10:09 AM [employer]AND CONSULTANT Performed at: ??[address], [place], [place] ??[id number] Solid Waste Analyst: Den Cook MD, Phone: ??[phone] Beth Nice DO LABORATORY [facility] ([facility]) [address] [place] [address], * R DEVELOPER THIN PREP PAP SCREEN IMAGED [[id number]] (08/14/2020 2:47 PM [employer]AND CONSULTANT) Case Report Gynecologic Cytology Report ? Case: [id number] ? Authorizing Provider: ??eBth Nice, ? Collected: ? 08/14/2020 1447 ? Ordering Location: ? [facility] [place] ?? Received: ?08/14/2020 1447 ? Clinic ? First Screen: ?Yesenia Cervantes ? Specimen: ?R DEVELOPER ThinPrep Vial Screening, Cervical ? 08/22/2020 2:25 PM CONTAM[employer]ATED LAND CONSULTANT [facility] INTERPRETATION/ RESULT NEGATIVE FOR INTRAEPITHELIAL LESION OR MALIGNANCY (NIL) (none) 08/22/2020 2:25 PM [employer]AND CONSULTANT [facility] IMEN ADEQUACY Satisfactory for evaluation Endocervical component present 08/22/2020 2:25 PM [employer]AND CONSULTANT [facility] HPV REQUEST HPV and PAP 08/22/2020 2:25 PM [employer]AND CONSULTANT [facility] Date of LMP postmenopausal 1 2:25 PM [employer] CONSULTANT [facility] Last Pap Date 06/03/17 08/22/2020 2:25 PM [employer]AND CONSULTANT [facility] Last Pap Result NIL 1 2:25 PM [employer] CONSULT[employer] [facility] Abnormal Pap or [place] Bx in last 5 years No 08/22/2020 2:25 PM [employer] CONSULT[employer] [facility] Menstrual Status Postmenopausal 08/22/2020 2:25 PM [employer]AND CONSULTANT [facility] [place] Bx Done Today No 08/22/2020 2:25 PM [employer]AND CONSULTANT [facility] Additional Information None given 08/22/2020 2:25 PM [employer]AND CONSULTANT [facility] Comment: Cytology is screened at [facility] - [address], [place] [address] and [facility] - [address], [place] [address] and [facility] - [address] [address] Interpreted at [facility] - [address], [place] [address] Automated Review Successful 08/22/2020 2:25 PM [employer] CONSULT[employer] [facility] Comment:Specimen processed s uccessfully by automated home teaching grades 7 and 8 teacher device, ThinPrep Imaging System, [employer] ANCILLARY TESTING R DEVELOPER HPV Ordered, Please see separate report 08/22/2020 2:25 PM [employer] CONSULTANT [facility] Note The pap test is a screening technique, not a diagnostic procedure. It is used primarily to screen for squamous cancers and precursor lesions. Published studies have shown that it is subject to both false negative and false positive results. The pap test should not be used as the sole means to diagnose or exclude pre-malignant and malignant lesions. 08/22/2020 2:25 PM CONTAMIN[employer] LAND CONSULTANT [facility]AL [facility] Other (Cervical) Non-Blood / Unknown 08/14/2020 2:47 PM [employer]AND CONSULTANT 08/14/2020 2:47 PM [employer]AND CONSULTANT Beth Nice DO PATHOLOGY/CYTOLOGY [facility] [address] [place] [address], * COLONOSCOPY SCREENING (08/31/2018 12:00 PM [employer]AND CONSULTANT) Larry Mendez MD GI PROCEDURE ORD * ACUTE HEPATITIS PANEL (12/01/2011 8:00 PM CDT) HBSAG Non-reacti ve [facility] IGM ANTI HBC Non-reacti ve [facility] IGM ANTI HAV Non-reacti ve [facility] ANTI HCV Non-reacti ve [facility] Blood specimen (specimen) BLOOD SPECIMEN / Unknown 12/01/2011 8:00 PM CDT 12/01/2011 9:21 PM CDT Evan Cabral MD SEND OUTS [facility] [place]NAL ZIP [id number] [place] [address] from Last 3 Months or Most Recently Relevant to Health Maintenance Advance Directives Documents on File Type Date Recorded Patient Production Potter Expl anation Treatment Guidelines 03/19/2021 Treatment Guidelines 10/27/2015 12:43 PM M [facility]USCITATION - [facility] FARM - 09/07/2015 Healthcare Directive 11/01/2014 10:09 AM H EALTHCARE DIRECTIVE * Full Code (Latest Code Status on File) Date Activated Date Inactivated Comments 12/12/2020 3:14 AM 12/12/2020 6:10 PM Question Answer Comments Code Status Discussion: Discussed * Full Code Date Activated Date Inactivated Comments 01/24/2018 12:44 AM 01/30/2018 4:50 PM Question Answer Comments Code Status Discussion: Not Discussed * Full Code Date Activated Date Inactivated Comments 01/09/2018 8:15 AM 01/13/2018 9:21 PM Question Answer Comments Code Status Discussion: Discussed * Full Code Date Activated Date Inactivated Comments 06/02/2017 8:03 AM 06/02/2017 2:04 PM Question Answer Comments Code Status Discussion: Per Existing Order * Full Code Date Activated Date Inactivated Comments 12/02/2011 1:46 PM 12/06/2011 4:35 PM Care Teams Manager Resort Relationship Specialty [place] [address] [place] [address] PCP - General Family Practice 10/09/17 Vivien Abdullahi MD Neurology 04/29/14 Jcarlos Velazquez MD Psychiatry 04/29/14
[2023-11-15 17:22] LABS: Lactate Sepsis w/Reflex* 0.6 mmol/L (0.5-1.9)
[2023-11-15 17:24] LABS: Basophils Absolute Auto 0.01 K/uL (0.00-0.30); Basophils Percent Auto 0.1 % (0.0-3.0); Eosinophils Absolute Auto 0.21 K/uL (0.00-0.50); Eosinophils Percent Auto 2.1 % (0.0-7.0); Hematocrit 36.5 % (33.0-51.0); Hemoglobin* 12.2 gm/dL (12.0-16.0); Immature Granulocytes Abs Auto 0.02 K/uL (0.00-0.30); Immature Granulocytes Pct Auto 0.2 %; Lymphocytes Percent Auto 11.8 % (20-44); Mean Corpuscular HGB Conc 33 gm/dL (32-36); Mean Corpuscular Hemoglobin 32 pg (26-34); Mean Corpuscular Volume 97 fL (80-100); Neutrophils Percent Auto 77.8 % (42.0-72.0); Platelet Count* 208 K/uL (140-440); RDW Coefficient of Variation % 12.3 % (11.5-15.5); Red Blood Count 3.76 m/uL (4.00-5.20); White Blood Count* 10.06 K/uL (4.50-11.00)
[2023-11-15] MEDS: KETOROLAC 15 MG/ML inj IVP (17:26)
[2023-11-15 17:27] LABS: Slide Review Reflex No
[2023-11-15] MEDS: 0.9 % SODIUM CHLORIDE 1000 ml 1,000 ML IV (17:27)
[2023-11-15 17:38] LABS: Albumin* 3.9 g/dL (3.3-5.0); Chloride* 101 mmol/L (96-114)
[2023-11-15 17:39] LABS: Potassium* 3.5 mmol/L (3.6-5.1); Sodium* 134 mmol/L (135-149)
[2023-11-15 17:41] LABS: Alkaline Phosphatase* 147 U/L (40-150); Anion Gap 7 mEq/L (7-15); Aspartate Amino Transferase* 25 U/L (12-35); Bilirubin Direct* 0.2 mg/dL (0.0-0.5); Bilirubin Total* 0.5 mg/dL (0.1-1.5); Blood Urea Nitrogen* 17 mg/dL (7-30); Carbon Dioxide* 26 mmol/L (20-32); Creatinine* 0.6 mg/dL (0.5-1.5); Estimated Glomerular Filt Rate 103 ml/min; Total Protein* 7.6 g/dL (6.0-8.3)
[2023-11-15 17:42] LABS: Alanine Aminotransferase* 20 U/L (4-35); Glucose* 95 mg/dL (60-115); Lipase* 36 U/L (23-300); Magnesium* 2.1 mg/dL (1.5-2.6)
[2023-11-15 18:09] LABS: C Reactive Protein* 37.7 mg/dL (0.5-1.0)
[2023-11-15] MEDS: LACTATED RINGERS 1000 ML 1,000 ML 75 ML IV (20:05)
== END 2023-11-15 21:51 | disposition short-term general hospital (02) ==
PROVIDERS: Emergency Provider Emergency Medicine; PCP Family Medicine
DX: K55.9 Vascular disorder of intestine, unspecified (principal)
CPT/HCPCS: 36415; 74177; 80048; 80076; 83605; 83690; 83735; 85025; 86140; 93005; 96361; 96374; 96375; 99285; J1885; J7030; J7120; Q9967

== ENCOUNTER 2023-11-15 21:42 | Outpatient (CLI) | payer MEDICARE, OTHER, SELFPAY ==
--- OUTSIDE RECORDS SUMMARY | 2023-11-20 07:04 | XMS_ITS | Clinical Summary ---
Author Name Unknown Organization [facility] Address [place], [place] [address] Care Team Providers Care Scanning Clerk Name Role Phone Vivien Abdullahi MD Unavailable Unavailable Jcarlos Velazquez MD Unavailable Unavailable Beth Nice DO Primary Care Provider [phone] Allergies Active Allergy Reactions Criticality Noted Date Comments Hydrochlorothiazide Headache 12/03/2018 Morphine Itching Unknown 01/23/2018 Amlodipine Edema 12/03/2018 Tramadol Nausea Only,Headache 01/07/2019 Medications Medication Sig Dispensed Refills Start Date End Date Status Amphetamine-Dextroa mphetamine (ADDERALL) 30 mg tablet Take 1 tablet by mouth 2 times daily with meals. 0 10/19/19 16 Suspended multivitamin (MVI) tablet Take 1 tablet by mouth once daily. 0 10/11/19 18 Suspended vortioxetine (TRINTELLIX) 20 mg tabIndications:Carmen r depressive disorder, recurrent episode with anxious distress (HC) Take 1 tablet by mouth once daily. 0 10/11/19 18 Suspended lurasidone (LATUDA) 20 mg tabletIndications:S chizoaffective disorder, depressive type (HC) Take 1 tablet by mouth with dinner. 30 tablet 12/05/19 18 Suspended Additional Information melatonin 3 mg tablet Take 24 mg by mouth at bedtime. Suspended traZODone (DESYREL) 150 mg tablet Take 150 mg by mouth at bedtime. Suspended saliva stimulant comb. no.7 gelIndications:Dry mouth Apply to the lining of the mouth. Biotene gel 60 g 4 02/24/20 18 Suspended Additional Information gabapentin (NEURONTIN) 600 mg tablet Take 2 tablets by mouth 3 times daily. 0 01/01/20 19 Suspended Ostomy Supplies miscIndications:His tory of creation of ostomy (HC) As directed. Must be Brava elastic barrier strips 90 Each 3 02/27/20 19 Suspended Additional Information caffeine 200 mg tablet Take by mouth every 3 hours if needed. 0 09/06/19 20 Suspended CaneIndications:Chr onic bilateral low back pain without sciatica,Balance problem,Closed nondisplaced subtrochanteric fracture of left femur, sequela Narrow Base Quad Cane for home use. Duration: lifetime 1 Device 09/13/19 20 Suspended Additional Information acetaminophen (TylenoL) 325 mg tablet Take 975 mg by mouth 3 times daily if needed. Max acetaminophen dose: 4000mg in 24 hrs. Suspended glucosamine sulfate (Glucosamine) 500 mg tab Take 500 mg by mouth 2 times daily. Suspended diphenhydrAMINE (BENADRYL) 25 mg capsule Take 1 Capsule (25 mg) by mouth every 4 hours. 0 12/15/19 21 Suspended HYDROcodone-acetami nophen (10-325 mg/tablet) Take 1 Tablet by mouth 3 times daily if needed for Pain. Max acetaminophen dose: 4000 mg in 24 hrs. 0 07/11/20 21 Suspended ibuprofen (ADVIL; MOTRIN) 200 mg tablet Take 1 Tablet (200 mg) by mouth every 6 hours. 0 08/20/19 22 Suspended enwmtkk-shrq-ccsvf- oreg-capryl 100 mg-150 mg- 50 mg-150 mg cap Take by mouth. 0 08/20/19 22 Suspended medication order composerIndications :Dry mouth ACT lozenges Use as needed for dry mouth 1 Package 11 08/20/19 22 Suspended Additional Information buPROPion (WELLBUTRIN XL) 300 mg Extended-Release tablet Take 300 mg by mouth once daily. 07/15/20 22 Suspended ciclopirox solution (Penlac) 8 % solutionIndications :Onychomycosis Apply 1 layer nightly for 7 days, then remove with alcohol. Max treatment of 48weeks. 6.6 mL 8 08/22/19 23 Suspended Additional Information omega-3 fatty acids (Fish Oil Concentrate) cap Take 2 Capsules (2,000 mg) by mouth once daily. 60 Capsule 08/26/19 Suspended propranolol ER (INDERAL LA) 60 mg Cs24 Sustained-Release capsuleIndications: Essential hypertension Take 1 Capsule (60 mg) by mouth once daily. 90 Capsule 3 03/10/20 Suspended Additional Information busPIRone (BUSPAR) 10 mg tablet Take 1 Tablet (10 mg) by mouth three times daily. 0 04/08/20 Suspended atorvastatin (LIPITOR) 40 mg tabletIndications:M ixed dyslipidemia TAKE 1 TABLET BY MOUTH EVERY NIGHT AT BEDTIME 90 Tablet 08/28/19 Suspended Additional Information nicotine 21 mg/24 hr (NICODERM; HABITROL) 21 mg/24 hr patchIndications:To bacco use disorder Apply 1 Patch on dry, clean, hairless skin once daily. 28 Patch 1 09/01/19 24 024 Discontinued(Ph armacist change per medication history (E-cancel not sent)) nicotine 14 mg/24 hr (NICODERM; HABITROL) 14 mg/24 hr patchIndications:To bacco use disorder Apply 1 Patch on dry, clean, hairless skin once daily. 28 Patch 1 09/01/19 24 024 Discontinued(Ph armacist change per medication history (E-cancel not sent)) nicotine 4 mg lozengeIndications: Tobacco use disorder Max 20 doses/day.PLACE 1 LOZENGE IN MOUTH, BETWEEN CHEEK AND GUM, EVERY HOUR WHILE 81 Each 2 09/01/19 24 024 Discontinued(Ph armacist change per medication history (E-cancel not sent)) nicotine 7 mg/24 hr (NICODERM; HABITROL) 7 mg/24 hr patchIndications:To bacco use disorder Apply 1 Patch on dry, clean, hairless skin once daily. 28 Patch 1 09/01/19 24 024 Discontinued(Ph armacist change per medication history (E-cancel not sent)) calcium with vitamin D3 (calcium 500 mg-vitamin d 200 units) tabletIndications:P ostmenopausal Take 1 Tablet by mouth two times daily with meals. 180 Tablet 3 09/01/19 Suspended Additional Information cholecalciferol (VITAMIN D3) 1,000 unit capsuleIndications: Vitamin D deficiency Take 1 Capsule (1,000 units) by mouth once daily. 90 Capsule 3 09/01/19 24 Suspended Additional Information cetirizine (ZYRTEC) 10 mg tabletIndications:S easonal allergic rhinitis due to pollen Take 1 Tablet (10 mg) by mouth once daily. 90 Tablet 3 09/01/19 24 Suspended Additional Information polyethylene glycoL (MIRALAX) 17 gram/scoop powderIndications:C hronic constipation Mix 1 scoop (17 g) in liquid then take by mouth once daily if needed for Constipation. 850 g 3 09/01/19 24 Suspended Additional Information albuterol HFA (Ventolin HFA) 90 mcg/actuation inhalerIndications: Tobacco use disorder Inhale 1 Puff by mouth 4 times daily if needed for Shortness of Breath 1st choice. 1 Each 1 09/01/19 24 Suspended Additional Information furosemide (LASIX) 20 mg tabletIndications:E ssential hypertension TAKE 1 TABLET BY MOUTH EVERY MORNING 90 Tablet 3 09/04/19 24 Suspended Additional Information docusate (COLACE) 100 mg capsuleIndications: Chronic constipation TAKE 1 CAPSULE BY MOUTH TWICE A DAY ( IN THE MORNING AND IN THE EVENING ) 180 Capsule 3 09/09/19 24 Suspended Additional Information losartan (COZAAR) 100 mg tabletIndications:E ssential hypertension TAKE 1 TABLET BY MOUTH DAILY 90 Tablet 3 09/17/19 24 Suspended Additional Information famotidine (PEPCID) 20 mg tabletIndications:C hronic GERD TAKE 1 TABLET BY MOUTH TWICE A DAY 180 Tablet 2 09/24/19 24 Suspended Additional Information spironolactone (ALDACTONE) 25 mg tabletIndications:E ssential hypertension Take 1 Tablet (25 mg) by mouth every morning. 90 Tablet 3 09/24/19 24 Suspended Additional Information carvediloL (COREG) 12.5 mg tabletIndications:U ncontrolled hypertension Take 1 Tablet (12.5 mg) by mouth two times daily with meals. 60 Tablet 09/24/19 24 024 Discontinued alendronate (FOSAMAX) 70 mg tabletIndications:O steopenia of right hip Take 1 Tablet (70 mg) by mouth once a week in the morning. Take on empty stomach with full glass of water. Do not lie down for 1 hr. 12 Tablet 3 09/24/19 24 Suspended Additional Information carvediloL (COREG) 12.5 mg tabletIndications:U ncontrolled hypertension TAKE 1 TABLET BY MOUTH TWICE A DAY WITH MEALS 180 Tablet 10/27/19 Suspended Additional Information Active Problems Problem Noted Date Diagnosed Date Large bowel ischemia 11/15/2023 Osteopenia of right hip 09/24/2023 Overview: DEXA 09/19/23: T-scores AP: 0.1, LFN N/A, RFN -1.8. FRAX 27.8%, 3.1%. Recommend Fosamax and repeat in 2 years. Colostomy status 08/22/2022 Chronic obstructive pulmonar y disease, unspecified COPD type 08/20/2021 Mixed dyslipidemia 08/15/2020 Closed nondisplaced subtroch anteric fracture of left femur with routine healing 06/09/2019 Chronic bilateral low back pain without sciatica 03/02/2019 It band syndrome, right 03/02/2019 Spinal stenosis of lumbar re gion without neurogenic claudication 03/02/2019 Lumbar facet arthropathy 03/02/2019 Prediabetes 06/03/2017 Thoracic disc herniation 05/28/2016 Overview: T8-9, per neurology Obesity (BMI 30-39.9) 05/28/2016 Pure hypercholesterolemia 05/24/2015 Overview: ASCVD 10 year risk 5.0%. Essential hypertension 05/24/2015 Sensorineural hearing loss, bilateral 12/16/2011 Spastic torticollis 10/30/2011 Schizoaffective disorder, depressive type 2011 External hemorrhoids 11/16/2010 Dry eye syndrome 07/03/2010 DISORDER, TOBACCO USE Abnormal involuntary movements(781.0) Overview: head tremors related to neck muscle contracture. Resolved Problems Problem Noted Date Diagnosed Date Resolved Date Class 2 severe obesity due t o excess calories with serious comorbidity in adult, unspecified BMI 08/22/2022 09/01/2023 Nausea with vomiting 12/12/2020 024 Elevated LFTs 08/16/2020 09/01/2023 Rectal bleeding 01/24/2018 12/12/2020 Tachycardia 01/24/2018 12/12/2020 Generalized weakness 01/24/2018 021 Perforated sigmoid colon 01/13/201811/2020 Stercoral ulcer of large intestine 01/09/2018 09/01/2023 Cervical disc disease 05/28/20162023 Overview: C6-7 with foramen narrowing, imaging per MRI, with neurology Routine adult health maintenance 05/16/2014 12/12/2020 Overview: Colonoscopy 05/2014 normal repeat in 10 years Elevated transaminase level 12/03/2011 04/29/2014 Anxiety 12/03/2011 11/15/2023 Major depressive disorder, r ecurrent episode with anxious distress 12/03/2011 11/15/2023 Depressive disorder, not elsewhere classified 12/26/19 06 03/13/2007 Non morbid obesity 12/25/2005 6 Fever and other physiologic disturbances of temperature regulation 06/03/2005 04/29/2014 SORE THROAT 06/03/2005 12/07/2008 TREMOR 06/03/2005 Pelvic abscess in female 11/2020 Encounters Date Type Department Care Team Description 11/18/2023 [place] [facility] [place] [address] [place] [address] Beth Nice DO I 11/17/2023 Tele[place] [facility] [place] [address] [place] [address] Beth Nice DO Form 11/16/2023 10:07 AM CDT Anesthesia Event [facility] [address] [place] [address] Anayeli Haro MD Jasienski, Jean J, CRNA 11/16/2023 9:54 AM CDT - 11/16/2023 12:06 PM CDT Surgery [facility] [address] [place] [address] Tony Garcia MD LAPAROTOMY EXPLORATION, SUBTOTAL COLECTOMY, REPAIR OF PERISTOMAL HERNIA; REPAIR OF VENTRAL HERNIA; RESITING OF OSTOMY 11/15/2023 10:49 PM CDT - Present Hospital Encounter [facility] [address] [place] [address] [facility] [place] Dawson Omer DO Rowan, Thomas Daniel, MD Novak, Em Huitron MD 11/15/2023 Orders Only [facility] Scanner 1 scan: (1-Ord) [facility], ABDOMEN and PELVIS W/CONTRAST, 11/15/2023 11/04/2023 [place] [facility] [place] [address] [facility] [place] [address] Beth Nice DO Form (PHYSICIAN ORDERS) 10/31/2023 Telephone [facility] [place] [address] [place] [address] Beth Nice DO Follow Up (Bp meds and visits) 10/21/2023 Refill [facility] [address] [place] [address] Beth Nice DO Refill Request (Carvedilol) 10/21/2023 Telephone [facility] [place] [address] [place] [address] Beth Nice DO Form (PHYSICIAN ORDER) 10/16/2023 Telephone [facility] [address] [place] [address] Beth Nice DO Form (Case Communication - BP readings) 10/03/2023 Telephone [facility] [place] [address] [place] [address] Beth Nice DO Form 10/01/2023 Telephone [facility] [address] [place] [address] Beth Nice DO Form (PHYSICIAN ORDER) 09/30/2023 1:45 PM ROCK WORKER Office Visit [facility] [address] [phone] Rachel Walker MD Derm Problem (Inside b/l cheeks white areas, dentist found them years ago. Occasionally bites them. Still has issues with dry mouth from meds.) 09/30/2023 Travel 09/26/2023 Telephone [place] [address] [place] [address] Beth Nice, Form (WRITTEN ORDER) 09/25/2023 Telephone [place] [address] [place] [address] Beth Nice, Results 09/23/2023 [address]ill [address] [place] [address] Beth Nice DO Refill Request (Famotidine, Spironolactone) 09/19/2023 11:00 AM ROCK WORKER Ancillary Procedure [address] [phone] 09/19/2023 Travel 09/18/2023 Telephone [place] [address] [place] [address] Beth Nice DO Form (ORDER) 09/16/2023 Refill [place] [address] [place] [address] Beth Nice DO Refill Request (Losartan) 09/16/2023 Telephone [place] [address] [place] [address] Beth Nice DO Form 09/09/2023 Refill [place] [address] [place] [address] Beth Nice DO Refill Request (Docusate) 09/08/[address] [place] [address] Beth Nice DO Form (ORDER) 09/02/2023 Refill [place] [address] [place] [address] Beth Nice DO Refill Request (Furosemide) 09/01/2023 2:30 PM ROCK WORKER Orders Only [address] [address] Lab, Farm Outside Order (ACP 07/22/2023) 09/01/2023 12:55 PM ROCK WORKER Office Visit [address] [address] Beth Nice DO Medicare ANNUAL (subsequent) Visit (Not fasting); Lab (Per [facility]) 09/01/2023 Travel 08/27/2023 Refill [place] [address] [place] [address] Beth Nice DO Refill Request (Spironolactone, Cetirizine, Atorvastatin) from Last 3 Months Immunizations Name Administration [...] IIV3 (Age >=3 years) 07/14/2012,06/12,07/19/2003 Influenza, IIV4 07/11/2021,,04/26/2019,2017,04/17/2016,04/27/2015,04/29/2014 Influenza, Live, Intranasal Laiv3 08/25/2009 Influenza,CCIIV4 PRESERV [...] Sign Reading Time Taken Comments Blood Pressure 133/80 11/19/2023 11:00 PM CDT Pulse 82 11/19/2023 11:00 PM CDT Temperature 36.7 ??C (98.1 ??F) 11/19/2023 11:00 PM C DT Respiratory Rate 18 11/19/2023 11:00 PM CDT Oxygen Saturation 94% 11/19/2023 11:00 PM CDT Inhaled Oxygen Concentration - - Weight 70.3 kg (155 lb) 11/16/2023 7:00 PM CDT Height 160 cm (5' 3) 11/16/2023 7:00 PM CDT Body Mass Index 27.46 11/16/2023 7:00 PM CDT Plan of Treatment Health Maintenance Due Date Last Done Comments Low Dose CT (for lung CA) ag e 50-80 2013 COVID-19 vaccine series ( season) 2023 08/20/2021, 01/29/2021, 01/01/2021 Mammogram for age 45-75 10/31/2023 10/31/19, 09/24/2021, 05/14/2018, Additional history exists Influenza for [...] - Increase reliability General Yes Jeaneth Husain, ALEX Note: Goal identified during: Initial Screening Status: [...] support goal achievement: will call patient with [facility] results and continue to offer support Proposed timeline for goal completion: will follow up with results and at 2 weeks. Notes: NA Date of follow up: will follow up 03/03 or 03/04 with resources found through [facility]. Procedures The patient is currently admitted. The information in this section might not be complete until the patient is discharged. Procedure Name Priority Date/Time Associated Diagnosis Comments POTASSIUM Timed 11/19/2023 6:20 AM CDT POTASSIUM Timed 11/19/2023 12:18 AM CDT POTASSIUM Timed 11/18/2023 5:17 PM CDT HEMOGLOBIN Timed 11/18/2023 5:17 PM CDT BASIC METABOLIC PANEL Timed 11/18/2023 5:17 PM CDT POTASSIUM Timed 11/18/2023 6:39 AM CDT SCAN CORRESP-EKG RESULTS 11/17/2023 8:40 AM CDT POTASSIUM Timed 11/17/2023 4:42 AM CDT CBC W PLT NO DIFF Early AM 11/17/2023 4:4 2 AM CDT BASIC METABOLIC PANEL Early AM 11/17/2023 4:42 AM CDT PATH TISSUE EXAM Today 11/16/2023 10:5 8 AM CDT ENDOTRACHEAL TUBE Routine 11/16/2023 10: 26 AM CDT ENDOTRACHEAL TUBE Routine 11/16/2023 10: 26 AM CDT ENDOTRACHEAL TUBE Routine 11/16/2023 10: 26 AM CDT COLECTOMY SUBTOTAL 11/16/2023 9: 49 AM CDT REPAIR PARA STOMAL HERNIA 11/16/2023 9:49 AM CDT HERNIORRHAPHY VENTRAL INCARCERATED 11/16/2023 9:49 AM CDT LAPAROTOMY EXPLORATION 11/16/2023 9:[address] ABDOMEN PELVIS W STAT 11/16/2023 8 :06 AM CDT BASIC METABOLIC PANEL Today 11/16/2023 6:58 AM CDT CBC W PLT NO DIFF Today 11/16/2023 6:5 8 AM CDT LACTATE VENOUS Today 11/15/2023 11:23 PM CDT SCAN-CT INTERPRETATION 11/15/2023 12:00 AM CDT SCAN-CARDIAC STRIP 11/15/2023 12 :00 AM CDT XR DXA BONE DENSITY 2 SITES AXIAL Routine 09/19/2023 11:25 AM ROCK WORKER Osteoporosis screening Asymptomatic menopausal state CBC WITH AUTO DIFFERENTIAL Routine 09/01/2023 2:33 PM ROCK WORKER Attention deficit hyperactivity disorder, 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 (HC) HEPATIC FUNCTION PANEL Routine 09/01/2023 2:33 PM ROCK WORKER Attention deficit hyperactivity disorder, 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 (HC) CBC WITH AUTO DIFFERENTIAL Routine 09/01/2023 2:33 PM ROCK WORKER Attention deficit hyperactivity disorder, 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 (HC) COMP METABOLIC PANEL Routine 09/01/2023 2:33 PM ROCK WORKER Essential hypertension Mixed dyslipidemia HEMOGLOBIN A1C SCREENING Routine 09/01/2023 2:33 PM ROCK WORKER Prediabetes LIPID PANEL W REFLEX MEASURED LDL Routine 09/01/2023 2:33 PM ROCK WORKER Mixed hyperlipidemia XR MAMMO HECTOR BILAT SCREEN Routine 10/30/2022 12:49 PM CDT Encounter for screening mammogram for malignant neoplasm of breast LC HIV-1/O/2, 4TH GENERATION Routine 08/22/2022 2:19 PM ROCK WORKER Screening for HIV (human immunodeficiency virus) ELECTRICAL PROSPECTING SUPERVISOR THIN PREP PAP SCREEN IMAGED Routine 08/14/2020 2:47 PM ROCK WORKER Screening for cervical cancer COLONOSCOPY SCREENING Routine 08/31/2018 12:00 PM ROCK WORKER Preoperative evaluation to rule out surgical contraindication ACUTE HEPATITIS PANEL STAT 12/01/2011 8:00 PM CDT from Last 3 Months or Most Recently Relevant to Health Maintenance Results * POTASSIUM (11/19/2023 6:20 AM CDT) Only the most recent of5 resultswithin the time period is included. POTASSIUM 4.2 3.5 - 5.1 mmol/L 11/19/2023 7:20 AM CDT [facility] Blood BLOOD SPECIMEN / Unknown Venipuncture / Unknown 11/19/2023 6:20 AM CDT 11/19/2023 6:29 AM CDT Anup Erwin MD CHEMISTRY Performing Organization Address City/[facility] Co de Phone Number [facility] [address] * (ABNORMAL) Hemoglobin AM (11/18/2023 5:17 PM CDT) Pathologist [facility] HEMOGLOBIN 11.1(L) 12.0 - 16.0 g/dL 11/18/2023 6:04 PM CDT [facility] MCV 98 80 - 100 fL 11/18/2023 6:04 PM CDT [facility] Blood BLOOD SPECIMEN / Unknown Butterfly / Unknown 11/18/2023 5:17 PM CDT 11/18/2023 5:58 PM CDT Em Acevedo MD HEMATOLOGY Performing Organization Address City/[facility]/ZIP Co de Phone Number [facility] [address] * (ABNORMAL) Basic metabolic panel AM (11/18/2023 5:17 PM CDT) Only the most recent of3 resultswithin the time period is included. SODIUM 137 136 - 145 mmol/L 11/18/2023 6:40 PM CDT [facility] POTASSIUM 3.6 3.5 - 5.1 mmol/L 11/18/2023 6:40 PM CDT [facility] CHLORIDE 100 98 - 107 mmol/L 11/18/2023 6:40 PM CDT [facility] CO2,TOTAL 25 22 - 29 mmol/L 11/18/2023 6:40 PM CDT [facility] ANION GAP 12 5 - 18 11/18/2023 6:40 PM CDT [facility] GLUCOSE 96 70 - 99 mg/dL 11/18/2023 6:40 PM CDT [facility] CALCIUM 9.0 8.8 - 10.2 mg/dL 11/18/2023 6:40 PM CDT [facility] BUN 7(L) 8 - 23 mg/dL 11/18/2023 6:40 PM CDT [facility] CREATININE 0.50 0.50 - 0.90 mg/dL 11/18/2023 6:40 PM CDT [facility] BUN/CREAT RATIO 14 10 - 20 6:40 PM CDT [facility] eGFR >90 >90 mL/min/1.7 3m2 11/18/2023 6:40 PM CDT [facility] Comment:As of 2021, eG FR is calculated by the CKD-EPI creatinine equation without race adjustment. ??eGFR can be influenced by muscle mass, exercise, and diet. ??The reported eGFR is an estimation only and is only applicable if the renal function is stable. Blood BLOOD SPECIMEN / Unknown Butterfly / Unknown 11/18/2023 5:17 PM CDT 11/18/2023 5:59 PM CDT Em Acevedo MD CHEMISTRY [facility] [address] [place] [address], * SCAN CORRESP-EKG RESULTS (11/17/2023 8:40 AM CDT) Narrative 11/17/2023 8:40 AM CDT Ordered by an unspecified provider. Other Clinical Staff OTHER * (ABNORMAL) CBC no diff AM (11/17/2023 4:42 AM CDT) Only the most recent of2 resultswithin the time period is included. WHITE BLOOD COUNT 7.4 4.5 - 11.0 thou/cu mm 11/17/2023 4:57 AM CDT [facility] RED BLOOD COUNT 3.61(L) 4.00 - 5.20 mil/cu mm 11/17/2023 4:57 AM CDT [facility] HEMOGLOBIN 11.5(L) 12.0 - 16.0 g/dL 11/17/2023 4:57 AM CDT [facility] HEMATOCRIT 34.1 33.0 - 51.0 % 11/17/2023 4:57 AM CDT [facility] MCV 95 80 - 100 fL 11/17/2023 4:57 AM CDT [facility] MCH 31.9 26.0 - 34.0 pg 11/17/2023 4:57 AM CDT [facility] MCHC 33.7 32.0 - 36.0 g/dL 11/17/2023 4:57 AM CDT [facility] RDW 12.6 11.5 - 15.5 % 11/17/2023 4:57 AM CDT [facility] PLATELET COUNT 257 140 - 440 thou/cu mm 11/17/2023 4:57 AM CDT [facility] MPV 8.6 6.5 - 11.0 fL 11/17/2023 4:57 AM CDT [facility] NRBC 0.0 % 11/17/2023 4:57 AM CDT [facility] ABS NRBC 0.0 thou /cu mm 11/17/2023 4:57 AM CDT [facility] Blood BLOOD SPECIMEN / Unknown Venipuncture / Unknown 11/17/2023 4:42 AM CDT 11/17/2023 4:53 AM CDT Jax Galvan MD HEMATOLOGY [facility] [address] [place] [address], * PATH TISSUE EXAM (11/16/2023 10:58 AM CDT) Case Report Pathology Report ?Case: [id number] ? Authorizing Provider: ??Tony Garcia MD ??Collected: ? 11/16/2023 1058 ? Ordering Location: ? [facility] ?Received: ?11/17/2023 0832 ? Hospital ? Pathologist: ? Oleg Conway MD ? Specimen: ?Colon ? 11/18/2023 3:23 PM CDT [facility] Final Diagnosis A) COLON, COLOSTOMY, RESECTION: 1. Segment of colon with acute ischemic colitis and perforation 2. Colocutaneous anastomosis consistent with colostomy 3. Multiple (3) benign regional lymph nodes identified 4. Negative for dysplasia and malignancy 11/18/2023 3:23 PM CDT [facility] Clinical Information Massive stool burden creating colonic ischemia and perforation Procedure(s): LAPAROTOMY EXPLORATION, SUBTOTAL COLECTOMY, REPAIR OF PERISTOMAL HERNIA; REPAIR OF VENTRAL HERNIA; RESITING OF OSTOMY (N/A) Procedure(s) findings: Very large stool burden with focal colonic perforation. ??Repaired primarily, incarcerated parastomal hernia and an incarcerated ventral hernia. ??Performed a subtotal colectomy with resection of the transverse colon to the level of the splenic flexure. ??Has ascending colon essentially and descending colon. ??Disimpaction of stool. ??Repaired both hernias. ??Recited the ostomy to the right mid abdomen. ?? The left-sided upper drain is in the subcutaneous space and hernia sac of the midline ventral hernia. ??The left mid abdomen is intra-abdominal and drains the left upper quadrant at the area of the perforation and colonic stump. ??The lower left drain is in the parastomal hernia sac and is in the subcutaneous space 11/18/2023 3:23 PM CDT [facility] Gross Description A) Received fresh labeled with the patient's name and colon, is a 60 cm long, 5 cm average diameter subtotal colectomy with perforation and disrupted abscess, detached portion of abscess wall with a staple line, adipose tissue (14 x 5 x 2 cm) and a detached stoma. ??The colon segment is closed by 2 staple lines. ??The serosa is smooth proximally and hemorrhagic with dense adhesions distally. Upon opening the perforation is 3.3 cm in diameter with smooth mucosal edges into the disrupted abscess. ??Perforation is located 18 cm from the distal margin. ??Upon reconstruction the abscess is 8 cm long, 5 cm in diameter and has a tanner severely necrotic lining. The bowel mucosa near the perforation exhibits severe edema and a 2 cm area of necrosis. ??No mass lesion is seen. ??The lymph nodes in the attached fat are soft, pink-rounded up to 1 cm in greatest dimension. ?? The attached stoma is a 3.5 cm in diameter and 3 cm in length exhibiting everted granular and mildly hemorrhagic mucosa surrounded by a 3 cm diameter and 0.4 cm long rim of skin. ??No lesion is seen. The detached adipose tissue exhibits hemorrhagic foci and patchy thin fibropurulent adhesions. ??No lymph node or lesion is identified on the cut surfaces. ?? Pallet Rectifier sections: 1. ??Proximal colon subjacent to the trimmed staple line, en face 2. ??Distal colon subjacent to the trimmed staple line, en face 3. ??Necrotic and edematous bowel near the pouch 4. ??Transition into the pouch 5. ??Pouch 6. ??Sections of the pouch perpendicular to the trimmed staple line 7. ??3 lymph nodes 8. ??Stoma Specimen images have been uploaded. Placed in formalin at 0910 on 11/17/2023 DPL 11/17/2023 11/18/2023 3:23 PM CDT [facility] Microscopic Description The final diagnosis is based on microscopic examination of appropriate sections of all specimens. 11/18/2023 3:23 PM CDT [facility] Additional Information Interpreted at [facility] - [address] [facility] [address] [address] 11/18/2023 3:23 PM CDT [facility] Tissue SPECIMEN FROM COLON / Unknown 11/16/2023 10:58 AM CDT 11/17/2023 8:32 AM CDT Tony Garcia MD PATHOLOGY/CYTOLO GY [facility] [address] [place] [address], * HCHG TUBE PR1, HCHG STYLET PR1, HCHG MOUTHPIECE PR1 (11/16/2023 10:26 AM CDT) Narrative Clay Rodas CRNA - 11/16/2023 10:26 AM CDT Clay Rodas CRNA ? 11/16/2023 10:27 AM Procedure: ETT Patient location during procedure: OR ETT Properties Mask Ventilation: not attempted Final Technique: direct laryngoscopy, cricoid pressure and rapid sequence induction Type: straight Location: oral Cuffed: yes Tube Size: 7.0 mm Stylet: yes Laryngoscope Blade: Lao Blade Size: 2 Cormack-Lehane Grade View: 1 Insertion Attempts: 1 Placement Verification: auscultation, end tidal CO2 and symmetrical chest wall movement Assessment: pharynx clear, atraumatic and dentition unchanged Secured at: 22 Measured From: teeth Tooth guard used and removed: yes Difficulty: 0 (not difficult) Anayeli Haro MD ANESTHESIA PX NOTE O RDERABLES * CT ABDOMEN PELVIS W (11/16/2023 8:06 AM CDT) Anatomical Region Laterality Modality Abdomen, Pelvis, AORTA, LIVER, SPLEEN Computed Tomography 11/16/2023 8:51 AM CDT Impressions 11/16/2023 8:51 AM CDT 1. Free intraperitoneal air predominantly in the left upper quadrant this likely reflects perforated bowel. Small amount of air around the distal esophagus no inflammatory change or wall thickening of the esophagus seen. Left lower quadrant colostomy with large parastomal hernia there is a significant amount of wall thickening and inflammatory change in the hernia sac. There is a more prominent extraluminal collection of air adjacent to the descending colon adjacent to the parastomal hernia which is suspected to be possibly a site of perforation. Results called to Dr. Quan on 11/16/23 at 8:50am. 2. Right ventral hernia containing colon without inflammatory changes or obstruction seen. Please note that all CT scans at this facility use dose modulation, iterative reconstruction, and/or weight-based dosing when appropriate to reduce radiation dose to as low as reasonably achievable. Dictated by Lavern White MD @ 11/16/2023 8:51:23 AM (Electronically Signed) Narrative 11/16/2023 8:51 AM CDT For Patients: ??As a result of the Cures Act, medical imaging exams and procedure reports are released immediately into your electronic medical record. ??You may view this report before your referring provider. ??If you have questions, please contact your health care provider. INDICATION: Abdominal pain TECHNIQUE: CT abdomen and pelvis with 100 mL Omnipaque 350 COMPARISON: CT 04/17/2018 FINDINGS: Lower chest: Right middle lobe and basilar atelectasis. Liver: Small low-attenuation lesion in the inferior right hepatic lobe probably reflects a small cyst. Gallbladder and bile ducts: No stones or inflammation. No biliary dilatation. Pancreas: Unremarkable. No mass or inflammation. Spleen: Normal in size. No masses. Adrenal glands: Normal in size. No nodules. Kidneys: Normal in size. No suspicious masses, stones, or hydronephrosis. GI tract: Long Kandace`s pouch. Partial colectomy with left lower quadrant colostomy. Large parastomal hernia. There is large amount of wall thickening inflammatory change in the parastomal hernia sac contrast was injected through the colostomy. There is free intraperitoneal air. There is air around the lower esophagus. There is a collection of free probable extraluminal air in the left upper quadrant adjacent to descending colon probably reflects a site of perforation. There is a large amount of stool within the colon. There is a right-sided ventral hernia containing colon without obstruction or inflammatory change seen. Vasculature: Abdominal aorta is normal in caliber. Lymph nodes: No lymphadenopathy. Peritoneum/Abdominal Wall: Unremarkable. No sign of mass or infiltration. No free air or significant free fluid. Pelvis: Unremarkable. No pelvic masses. Bones: Unremarkable for age. Postsurgical changes of the left hip Procedure Note Lavern White MD - 11/16/2023 For Patients: As a result of the 21st Century Cures Act, medical imagingexams and procedure reports are released immediately into your electronicmedical record. You may view this report before your referring provider.If you have questions, please contact your health care provider. INDICATION: Abdominal pain TECHNIQUE: CT abdomen and pelvis with 100 mL Omnipaque 350 COMPARISON: CT 04/17/2018 FINDINGS: Lower chest: Right middle lobe and basilar atelectasis. Liver: Small low-attenuation lesion in the inferior right hepatic lobeprobably reflects a small cyst. Gallbladder and bile ducts: No stones or inflammation. No biliarydilatation. Pancreas: Unremarkable. No mass or inflammation. Spleen: Normal in size. No masses. Adrenal glands: Normal in size. No nodules. Kidneys: Normal in size. No suspicious masses, stones, or hydronephrosis. GI tract: Long Kandace`s pouch. Partial colectomy with left lowerquadrant colostomy. Large parastomal hernia. There is large amount of wallthickening inflammatory change in the parastomal hernia sac contrast wasinjected through the colostomy. There is free intraperitoneal air. There is air around the loweresophagus. There is a collection of free probable extraluminal air in theleft upper quadrant adjacent to descending colon probably reflects a siteof perforation. There is a large amount of stool within the colon. There is a right-sided ventral hernia containing colon without obstructionor inflammatory change seen. Vasculature: Abdominal aorta is normal in caliber. Lymph nodes: No lymphadenopathy. Peritoneum/Abdominal Wall: Unremarkable. No sign of mass or infiltration.No free air or significant free fluid. Pelvis: Unremarkable. No pelvic masses. Bones: Unremarkable for age. Postsurgical changes of the left hip IMPRESSION: 1. Free intraperitoneal air predominantly in the left upper quadrant thislikely reflects perforated bowel. Small amount of air around the distalesophagus no inflammatory change or wall thickening of the esophagus seen. Left lower quadrant colostomy with large parastomal hernia there is asignificant amount of wall thickening and inflammatory change in thehernia sac. There is a more prominent extraluminal collection of airadjacent to the descending colon adjacent to the parastomal hernia whichis suspected to be possibly a site of perforation. Results called to Dr. Quan on 11/16/23 at 8:50am. 2. Right ventral hernia containing colon without inflammatory changes orobstruction seen. Please note that all CT scans at this facility use dose modulation,iterative reconstruction, and/or weight-based dosing when appropriate toreduce radiation dose to as low as reasonably achievable. Dictated by Lavern White MD @ 11/16/2023 8:51:23 AM (Electronically Signed) Angelina Quan MD CT * Lactate, venous (11/15/2023 11:23 PM CDT) LACTATE,VENOUS 0.5 0.5 - 2.0 mmol/L 11/16/2023 12:11 AM CDT [facility] Blood BLOOD SPECIMEN / Unknown Butterfly / Unknown 11/15/2023 11:23 PM CDT 11/15/2023 11:41 PM CDT Dawson Omer DO CHEMISTRY [facility] [address] [place] [address], * SCAN-CARDIAC STRIP (11/15/2023 12:00 AM CDT) Narrative 11/15/2023 12:00 AM CDT Ordered by an unspecified provider. Other Clinical Staff OTHER * SCAN-CT INTERPRETATION (11/15/2023 12:00 AM CDT) Anatomical Region Laterality Modality Other Scanner OTHER * XR DXA BONE DENSITY 2 SITES AXIAL (09/19/2023 11:25 AM ROCK WORKER) Anatomical Region Laterality Modality Spine, HIPS, HIPL, HIPR Computed Radiography 09/19/2023 11:2 5 AM ROCK WORKER Impressions 09/19/2023 12:53 PM ROCK WORKER Low bone density (OSTEOPENIA). T score meets the WHO criteria for low bone density (osteopenia) at one or more measured sites. The risk of osteoporotic fracture increases approximately two-fold for each standard deviation decrease in T-score. Narrative 09/19/2023 12:53 PM ROCK WORKER For Patients: As a result of the Century Cures Act, medical imaging exams and procedure reports are released immediately into your electronic medical record. You may view this report before your referring provider. If you have questions, please contact your health care provider. EXAM: XR DXA BONE DENSITY 2 SITES AXIAL LOCATION: [facility] DATE: 09/19/2023 INDICATION: I. Other (screening-at minimum [...] fracture: 27.8% hip fracture: 3.1% Procedure Note BlockCelso MD - 09/19/2023 For Patients: As a result of the Cures Act, medical imagingexams and procedure reports are released immediately into your electronicmedical record. You may view this report before your referring provider.If you have questions, please contact your health care provider. EXAM: XR DXA BONE DENSITY 2 SITES AXIAL LOCATION: [facility] DATE: 09/19/2023 INDICATION: I. Other (screening-at minimum [...] CBC WITH AUTO DIFFERENTIAL (09/01/2023 2:33 PM ROCK WORKER) WHITE BLOOD COUNT 6.0 4.5 - 11.0 thou/cu mm 09/01/2023 2:[address] [facility] RED BLOOD COUNT 4.31 4.00 - 5.20 mil/cu mm 09/01/2023 2:[address] [facility] HEMOGLOBIN 13.8 12.0 - 16.0 g/dL 09/01/2023 2:[address] [facility] HEMATOCRIT 42.2 33.0 - 51.0 % 09/01/2023 2:[address] [facility] MCV 98 80 - 100 fL 09/01/2023 2:[address] [facility] MCH 32.0 26.0 - 34.0 pg 09/01/2023 2:[address] [facility] MCHC 32.7 32.0 - 36.0 g/dL 09/01/2023 2:[address] [facility] RDW 12.6 11.5 - 15.5 % 09/01/2023 2:[address] [facility] PLATELET COUNT 198 140 - 440 thou/cu mm 09/01/2023 2:[address] [facility] MPV 9.6 6.5 - 11.0 fL 09/01/2023 2:[address] [facility] % NEUT 42.5 % 09/01/2023 2:[address] [facility] % LYMPH 46.4 % 09/01/2023 2:[address] [facility] % MONO 7.8 % 09/01/2023 2:45 PM ROCK WORKER [facility] % EOS 2.8 % 09/01/2023 2:45 PM ROCK WORKER [facility] % BASO 0.5 % 09/01/2023 2:45 PM ROCK WORKER [facility] ABSOLUTE NEUTROPHILS 2.5 1.7 - 7.0 thou/cu mm 09/01/2023 2:45 PM ROCK WORKER [facility] ABSOLUTE LYMPHOCYTES 2.8 0.9 - 2.9 thou/cu mm 09/01/2023 2:45 PM ROCK WORKER [facility] ABSOLUTE MONOCYTES 0.5 <0.9 thou/cu mm 09/01/2023 2:45 PM ROCK WORKER [facility] ABSOLUTE EOSINOPHILS 0.2 <0.5 thou/cu mm 09/01/2023 2:45 PM ROCK WORKER [facility] ABSOLUTE BASOPHILS 0.0 <0.3 thou/cu mm 09/01/2023 2:[address] [facility] Blood BLOOD SPECIMEN / Unknown Venipuncture / Unknown 09/01/2023 2:33 PM ROCK WORKER 09/01/2023 2:33 PM ROCK WORKER Narrative [facility] - 09/01/2023 2:45 PM ROCK WORKER The lab will provide the testing results for BMP, CBC, A1CS, HFP, to the outside provider, Dhaval Landry MD at fax number [phone] Beth Nice DO HEMATOLOGY Performing Organization Address City/State/[facility] Co de Phone Number [facility] [address] [place] [address], * HEMOGLOBIN A1C SCREENING (09/01/2023 2:33 PM ROCK WORKER) HEMOGLOBIN A1C SCREENING 5.1 <=6.4 % 09/02/2023 7:52 AM [facility] Blood BLOOD SPECIMEN / Unknown Venipuncture / Unknown 09/01/2023 2:33 PM ROCK WORKER 09/01/2023 2:33 PM ROCK WORKER Narrative [facility] - 09/02/2023 7:52 AM ROCK WORKER ? (<5.7%) ?Normal ? (5.7% to 6.4%) ? Indicates prediabetes ? (>=6.5%) ? Confirms diabetes Falsely low levels may be seen with: Recent Transfusion, Recent Significant Blood Loss, Hemolytic Diseases, or Falsely elevated levels may be seen with: Untreated Anemias, Splenectomy Beth Nice DO CHEMISTRY [facility] [address] [place] [address], * LIPID PANEL W REFLEX MEASURED LDL (09/01/2023 2:33 PM ROCK WORKER) CHOLESTEROL,TOTAL 175 100 - 199 mg/dL 09/01/2023 10:46 PM [facility] Comment: Cholesterol, Total Reference Ranges Desirable <200 mg/dL Borderline 200-239 mg/dL High >=240 mg/dL TRIGLYCERIDES 86 <150 mg/dL 09/01/2023 10:46 PM [facility] HDL CHOLESTEROL 85 >40 mg/dL 10:46 PM [facility] NON-HDL CHOLESTEROL 90 <145 mg/dl 09/01/2023 10:46 PM [facility] CHOL/HDL RATIO 2.06 <4.50 09/01/2023 10:46 PM [facility] LDL CHOLESTEROL 73 <=130 mg/dL 09/01/2023 10:46 PM [facility] VLDL CHOLESTEROL 17 <=30 mg/dL 09/01/2023 10:46 PM [facility] PROVIDER ORDERED STATUS FASTING 09/01/2023 10:46 PM [facility] Blood BLOOD SPECIMEN / Unknown Venipuncture / Unknown 09/01/2023 2:33 PM ROCK WORKER 09/01/2023 2:33 PM ROCK WORKER Roseann Patel MD CHEMISTRY [facility] [address] [place] [address], * HEPATIC FUNCTION PANEL (09/01/2023 2:33 PM ROCK WORKER) ALBUMIN 4.8 4.0 - 4.9 g/dL 09/01/2023 10:46 PM ROCK WORKER [facility] PROTEIN,TOTAL 7.1 6.0 - 8.0 g/dL 09/01/2023 10:46 PM ROCK WORKER [facility] BILIRUBIN,TOTAL 0.2 0.0 - 1.2 mg/dL 09/01/2023 10:46 PM ROCK WORKER [facility] BILIRUBIN,DIRECT <0.2 0.0 - 0.3 mg/dL 09/01/2023 10:46 PM ROCK WORKER [facility] BILIRUBIN,INDIRE CT 09/01/2023 10:46 PM ROCK WORKER [facility] Comment:Unable to calculate, Direct Bili <0.2 ALK PHOSPHATASE 69 35 - 104 IU/L 09/01/2023 10:46 PM ROCK WORKER [facility] ALT (SGPT) 23 10 - 35 IU/L 09/01/2023 10:46 PM ROCK WORKER [facility] AST (SGOT) 24 10 - 35 IU/L 09/01/2023 10:46 PM ROCK WORKER [facility] Blood BLOOD SPECIMEN / Unknown Venipuncture / Unknown 09/01/2023 2:33 PM ROCK WORKER 09/01/2023 2:33 PM ROCK WORKER Beth Nice DO CHEMISTRY [facility] [address] [place] [address], * (ABNORMAL) COMP METABOLIC PANEL (09/01/2023 2:33 PM ROCK WORKER) SODIUM 142 136 - 145 mmol/L 09/01/2023 10:46 PM [facility] POTASSIUM 4.4 3.5 - 5.1 mmol/L 09/01/2023 10:46 PM [facility] CHLORIDE 103 98 - 107 mmol/L 09/01/2023 10:46 PM [facility] CO2,TOTAL 28 22 - 29 mmol/L 09/01/2023 10:46 PM [facility] ANION GAP 11 5 - 18 09/01/2023 10:46 PM [facility] GLUCOSE 84 70 - 99 mg/dL 09/01/2023 10:46 PM [facility] CALCIUM 10.6(H) 8.8 - 10.2 mg/dL 09/01/2023 10:46 PM [facility] BUN 15 8 - 23 mg/dL 09/01/2023 10:46 PM [facility] CREATININE 0.89 0.50 - 0.90 mg/dL 09/01/2023 10:46 PM [facility] BUN/CREAT RATIO 17 10 - 20 10:46 PM [facility] eGFR 74(L) >90 mL/min/1.7 3m2 09/01/2023 10:46 PM [facility] Comment:As of 2021, eG FR is calculated by the CKD-EPI creatinine equation without race adjustment. ??eGFR can be influenced by muscle mass, exercise, and diet. ??The reported eGFR is an estimation only and is only applicable if the renal function is stable. ALBUMIN 4.8 4.0 - 4.9 g/dL 09/01/2023 10:46 PM [facility] PROTEIN,TOTAL 7.1 6.0 - 8.0 g/dL 09/01/2023 10:46 PM [facility] BILIRUBIN,TOTAL 0.2 0.0 - 1.2 mg/dL 09/01/2023 10:46 PM [facility] ALK PHOSPHATASE 69 35 - 104 IU/L 09/01/2023 10:46 PM ROCK WORKER [facility] ALT (SGPT) 23 10 - 35 IU/L 09/01/2023 10:46 PM ROCK WORKER [facility] AST (SGOT) 24 10 - 35 IU/L 09/01/2023 10:46 PM ROCK WORKER [facility] Blood BLOOD SPECIMEN / Unknown Venipuncture / Unknown 09/01/2023 2:33 PM ROCK WORKER 09/01/2023 2:33 PM ROCK WORKER Beth Nice DO CHEMISTRY [facility] [address] [place] [address], * XR MAMMO HECTOR BILAT SCREEN (10/30/2022 [...] care provider. XR MAMMO HECTOR BILAT SCREEN [[id number]] CLINICAL HISTORY: ??This is an asymptomatic 57 [...] calcifications or areas of architectural distortion. Beth Nice DO MAMMO * LC HIV-1/O/2, 4TH GENERATION (08/22/2022 2:19 PM ROCK WORKER) Pathologist [facility] HIV Scr 4th Gen Non Reactive Non Reactive 08/24/2022 10:09 AM ROCK WORKER [facility] ([facility]) Comment: HIV Negative HIV-1/HIV-2 antibodies and HIV-1 p24 antigen were NOT detected. There is no laboratory evidence of HIV infection. Blood BLOOD SPECIMEN / Unknown Venipuncture / Unknown 08/22/2022 2:19 PM ROCK WORKER 08/22/2022 2:19 PM ROCK WORKER Narrative [facility] ([facility]) - 08/24/2022 10:09 AM ROCK WORKER Performed at: ??[address] [facility] [employer] [place], [place] ??[id number] Healthcare Recruiter: Den Cook MD, Phone: ??[phone] Beth Nice DO LABORATORY [facility] ([facility]) [address] [place] [address], * ELECTRICAL PROSPECTING SUPERVISOR THIN PREP PAP SCREEN IMAGED [[id number]] (08/14/2020 2:47 PM ROCK WORKER) [facility] Case Report Gynecologic Cytology Report ? Case: [id number] ? Authorizing Provider: ??Beth Nice, DO ? Collected: ? 08/14/2020 1447 ? Ordering Location: ? [facility] ?? Received: ?08/14/2020 1447 ? Clinic ? First Screen: ?Yesenia Cervantes ? Specimen: ?ELECTRICAL PROSPECTING SUPERVISOR ThinPrep Vial Screening, Cervical ? 08/22/2020 2:25 PM ROCK WORKER [facility] INTERPRETATION/ RESULT NEGATIVE FOR INTRAEPITHELIAL LESION OR MALIGNANCY (NIL) (none) 08/22/2020 2:25 PM ROCK WORKER [facility] IMEN ADEQUACY Satisfactory for evaluation Endocervical component present 08/22/2020 2:25 PM ROCK WORKER [facility] HPV REQUEST HPV and PAP 08/22/2020 2:25 PM ROCK WORKER [facility] Date of LMP postmenopausal 1 2:25 PM ROCK WORKER [facility] Last Pap Date 06/03/17 08/22/2020 2:25 PM ROCK WORKER [facility] Last Pap Result NIL 1 2:25 PM ROCK WORKER [facility] Abnormal Pap or Lynden Bx in last 5 years No 08/22/2020 2:25 PM ROCK WORKER [facility] Menstrual Status Postmenopausal 08/22/2020 2:25 PM ROCK WORKER [facility] Lynden Bx Done Today No 08/22/2020 2:25 PM ROCK WORKER [facility] Additional Information None given 08/22/2020 2:25 PM ROCK WORKER [facility] Comment: Cytology is screened at [facility] - [address], [place] [address] and [facility] - [address] [place] [address] [place] [address] and [facility] - [address] [place] [address] Interpreted at [facility] - [address], [place] [address] Automated Review Successful 08/22/2020 2:25 PM ROCK WORKER [facility] Comment:Specimen processed s uccessfully by automated medical technician assistant device, ThinPrep Imaging System, [employer] ANCILLARY TESTING ELECTRICAL PROSPECTING SUPERVISOR HPV Ordered, Please see separate report 08/22/2020 2:25 PM ROCK WORKER [facility] Note The pap test is a screening technique, not a diagnostic procedure. It is used primarily to screen for squamous cancers and precursor lesions. Published studies have shown that it is subject to both false negative and false positive results. The pap test should not be used as the sole means to diagnose or exclude pre-malignant and malignant lesions. 08/22/2020 2:25 PM ROCK WORKER [facility] Other (Cervical) Non-Blood / Unknown 08/14/2020 2:47 PM ROCK WORKER 08/14/2020 2:47 PM ROCK WORKER Beth Nice DO PATHOLOGY/CYTOLOGY [facility] [address] [place] [address], [place] * COLONOSCOPY SCREENING (08/31/2018 12:00 PM ROCK WORKER) Larry Mendez MD GI PROCEDURE ORD * ACUTE HEPATITIS PANEL (12/01/2011 8:00 PM CDT) HBSAG Non-reacti ve [facility] IGM ANTI HBC Non-reacti ve [facility] IGM ANTI HAV Non-reacti ve [facility] ANTI HCV Non-reacti ve [facility] Blood specimen (specimen) BLOOD SPECIMEN / Unknown 12/01/2011 8:00 PM CDT 12/01/2011 9:21 PM CDT Evan Cabral MD SEND OUTS [facility] [place]NAL ZIP [id number] [address] [place] [address] from Last 3 Months or Most Recently Relevant to Health Maintenance Advance Directives Documents on File Type Date Recorded Patient Pallet Rectifier Expl anation Treatment Guidelines 03/19/2021 Treatment Guidelines 10/27/2015 12:43 PM M ED CARE & RESUSCITATION - FARM - 09/07/2015 Healthcare Directive 11/01/2014 10:09 AM H EALTHCARE DIRECTIVE * Full Code (Latest Code Status on File) Date Activated Date Inactivated Comments 11/15/2023 11:11 PM Question Answer Comments Code Status Discussion: Reviewed Preferences * Full Code Date Activated Date Inactivated Comments 12/12/2020 3:14 [...] Comments Code Status Discussion: Per Existing Order Care Teams Scanning Clerk Relationship Specialty [place] [address] [place] [address] PCP - General Family Practice 10/09/17 Vivien Abdullahi MD Neurology 04/29/14 Jcarlos Velazquez MD Psychiatry 04/29/14
--- OUTSIDE RECORDS SUMMARY | 2023-11-20 07:04 | XMS_ITS | Clinical Summary ---
Author Name Unknown Organization [facility] Address [address] [place] [address] Care Team Providers Care Negative Restorer Name Role Phone Beth Nice Primary Care Provider Source Comments You are receiving this document as you are listed as the primary care provider,follow-up provider, or the patient has been referred to you for consultation.This is in compliance with the Medicare and[facility] EHR Incentive Program,which states Providers who transition their patient to another setting of careor provider of care or refers their patient to another provider of care shouldprovide summary care record for each transition of care or referral. [facility] Allerg[facility] Active Allergy Reactions Criticality Noted Date [...] age to complete this topic Care Teams Negative Restorer Relationship Specialty [place] [address] [place] [address] PCP - General Family Practice 02/20/18
== END 2023-11-15 21:43 | disposition home or self-care (01) ==
LOC: AMB 11-20 07:01
PROVIDERS: PCP Family Medicine; Visit Provider Internal Medicine
DX: K43.5 Parastomal hernia without obstruction or gangrene (principal); Z93.3 Colostomy status
CPT/HCPCS: A0425; A0429